=== PATIENT | female | born 1930 | race Caucasian/White ===

== ENCOUNTER → 2016-07-31 | Outpatient (CLI) | payer OTHER, BC ==
[~2016-07-31] MED LIST: ASPI-461 PO; ATEN50TA PO; CALC-20 PO; CHOL1000 PO; DVN80 PO; HYDR-5688 PO; LEVO137T3 PO; LEVO150T PO
[2016-07-31 12:17] LABS: ALB/GLOB RATIO 0.9 (0.9-2); ALT/SGPT 38 U/L (12-78); AST/SGOT 26 U/L (15-37); BLOOD UREA NITROGEN 20 mg/dl (7-18); BUN/CREATININE RATIO 29.9 (10-20); CALCIUM 8.3 mg/dl (8.5-10.1); CARBON DIOXIDE 29 mmol/L (21-32); CHLORIDE 101 mmol/L (98-107); CREATININE 0.68 mg/dl (0.60-1.20); GLUCOSE 83 mg/dl (70-99); POTASSIUM 3.8 mmol/L (3.5-5.1); SODIUM 137 mmol/L (136-145)
[2016-07-31 12:23] LABS: ALKALINE PHOSPHATASE 65 U/L (45-117); PREALBUMIN 15.6 mg/dl (20-40)
== END | disposition home or self-care (01) ==
LOC: C.LABBC 09:51
PROVIDERS: ATTEND Internal Medicine
DX: E40 Kwashiorkor (principal)

== ENCOUNTER → 2016-08-25 | Outpatient (CLI) | payer OTHER, BC | END | disposition home or self-care (01) | LOC: C.MAMM 09:06 | PROVIDERS: ATTEND Internal Medicine | DX: M81.0 Age-related osteoporosis without current pathological fracture (principal); Z78.0 Asymptomatic menopausal state ==

== ENCOUNTER → 2016-11-09 | Outpatient (CLI) | payer OTHER, BC ==
[~2016-11-09] MED LIST changes: -HYDR-5688 PO
[2016-11-09 15:18] LABS: ALT/SGPT 32 U/L (12-78); BLOOD UREA NITROGEN 19 mg/dl (7-18); BUN/CREATININE RATIO 31.7 (10-20); CARBON DIOXIDE 32 mmol/L (21-32); CHLORIDE 98 mmol/L (98-107); GLUCOSE 73 mg/dl (70-99); POTASSIUM 4.3 mmol/L (3.5-5.1); SODIUM 135 mmol/L (136-145)
[2016-11-09 15:23] LABS: ALB/GLOB RATIO 0.9 (0.9-2); ALKALINE PHOSPHATASE 64 U/L (45-117); AST/SGOT 25 U/L (15-37); PREALBUMIN 20.5 mg/dl (20-40)
[2016-11-09 15:31] LABS: CALCIUM 8.6 mg/dl (8.5-10.1)
== END | disposition home or self-care (01) ==
LOC: C.LABBC 09:19
PROVIDERS: ATTEND Internal Medicine
DX: E22.2 Syndrome of inappropriate secretion of antidiuretic hormone (principal)

== ENCOUNTER → 2016-11-11 | Outpatient (CLI) | payer OTHER, BC ==
--- NOTE | 2016-11-11 10:56 | DIAGNOSTIC IMAGING REPORT ---
THORACIC SPINE 3 VIEWS HISTORY: M81.0 [id number] Vitamin D [id number] Mineral defici COMPARISON: None. FINDINGS: There is no fracture. No subluxation. Minimal levoscoliosis which could be positional. Paraspinal soft tissues are unremarkable. 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 IMPRESSION: No fracture or subluxation within the thoracic spine. Mild degenerative disc disease. Electronically signed by: Joe Reyes M.D. 11/11/2016 10:54 AM Dictated Date/Time: 11/11/2016 10:51 AM
== END | disposition home or self-care (01) ==
LOC: C.RAD1850 10:40
PROVIDERS: ATTEND Internal Medicine Rheumatology
DX: E55.9 Vitamin D deficiency, unspecified (principal); E61.8 Deficiency of other specified nutrient elements; M81.0 Age-related osteoporosis without current pathological fracture

== ENCOUNTER → 2016-12-08 | Outpatient (CLI) | payer OTHER, BC ==
[2016-12-08 15:13] LABS: CREATININE 0.63 mg/dl (0.60-1.20)
[2016-12-08 15:21] LABS: CALCIUM URINE 19.7 mg/dl
[2016-12-10 16:12] LABS: ALBUMIN 3.6 G/DL (3.8-4.8); GAMMA GLOBULIN 1.2 G/DL (0.8-1.7); TOTAL PROTEIN 6.5 G/DL (6.2-8.3)
== END | disposition home or self-care (01) ==
LOC: C.LABBC 09:38
PROVIDERS: ATTEND Internal Medicine Rheumatology
DX: E61.8 Deficiency of other specified nutrient elements (principal); M81.0 Age-related osteoporosis without current pathological fracture; E55.9 Vitamin D deficiency, unspecified

== ENCOUNTER → 2016-12-29 | Outpatient (CLI) | payer OTHER, BC ==
--- NOTE | 2016-12-29 16:16 | MAMMOGRAPHY REPORT ---
BILATERAL DIGITAL SCREENING MAMMOGRAM WITH CAD: 12/29/2016 CLINICAL HISTORY: Routine screening. TECHNIQUE: Bilateral CC and MLO views were obtained. Current study was also evaluated with a Compute r Aided Detection (CAD) system. COMPARISON: Comparison is made to exams dated: 12/27/2015 mammogram, 01/04/2015 mammogram, 12/21/2014 ma mmogram, 12/15/2013 mammogram, 12/13/2012 mammogram, and 12/07/2011 mammogram - [facility] nter. BREAST COMPOSITION: There are scattered areas of fibroglandular density in both breasts. FINDINGS: There is minimal vascular calcification in the breasts. No suspicious mass, architectural distortion or cluster of microcalcifications is seen. IMPRESSION: ACR BI-RADS CATEGORY 1: NEGATIVE There is no mammographic evidence of malignancy. A 1 year screening mammogram is recommended. The pa tient will receive written notification of the results. Approximately 10% of breast cancers are not detected with mammography. A negative mammographic report should not delay biopsy if a clinically suggestive mass is present. Bernice Pittman M.D. ay/:12/29/2016 15:58:04 Manager [employer]: Joseph Mac RT(R)(M), [facility] letter sent: Normal 1/2 BI-RADS Code: ACR BI-RADS Category 1: Negative
== END | disposition home or self-care (01) ==
LOC: C.MAMM 09:28
PROVIDERS: ATTEND Internal Medicine
DX: Z12.31 Encounter for screening mammogram for malignant neoplasm of breast (principal)

== ENCOUNTER → 2017-01-20 | Outpatient (CLI) | payer OTHER, BC ==
[2017-01-20 10:56] LABS: CREATININE 0.71 mg/dl (0.60-1.20)
[2017-01-20 11:08] LABS: CALCIUM URINE 10.9 mg/dl
== END | disposition home or self-care (01) ==
LOC: C.LABBC 08:58
PROVIDERS: ATTEND Internal Medicine Rheumatology
DX: M81.0 Age-related osteoporosis without current pathological fracture (principal); E61.8 Deficiency of other specified nutrient elements; E83.50 Unspecified disorder of calcium metabolism

== ENCOUNTER → 2017-03-12 | Outpatient (CLI) | payer OTHER, BC ==
[2017-03-12 13:43] LABS: BLOOD UREA NITROGEN 21 mg/dl (7-18); CREATININE 0.63 mg/dl (0.60-1.20); GLUCOSE 84 mg/dl (70-99)
[2017-03-12 13:44] LABS: ALB/GLOB RATIO 0.8 (0.9-2); ALKALINE PHOSPHATASE 60 U/L (45-117); ALT/SGPT 27 U/L (12-78); AST/SGOT 22 U/L (15-37); CALCIUM 8.5 mg/dl (8.5-10.1); CARBON DIOXIDE 31 mmol/L (21-32); CHLORIDE 100 mmol/L (98-107); POTASSIUM 4.3 mmol/L (3.5-5.1); SODIUM 134 mmol/L (136-145)
[2017-03-12 13:48] LABS: PREALBUMIN 19.7 mg/dl (20-40)
== END | disposition home or self-care (01) ==
LOC: C.LABBC 09:44
PROVIDERS: ATTEND Internal Medicine
DX: M81.0 Age-related osteoporosis without current pathological fracture (principal); E40 Kwashiorkor

== ENCOUNTER → 2017-04-20 | Outpatient (CLI) | payer OTHER, BC ==
[2017-04-20 13:58] LABS: BLOOD UREA NITROGEN 19 mg/dl (7-18); CREATININE 0.65 mg/dl (0.60-1.20)
== END | disposition home or self-care (01) ==
LOC: C.LABBC 10:29
PROVIDERS: ATTEND Physician Assistant
DX: H90.A22 Sensorineural hearing loss, unilateral, left ear, with restricted hearing on the contralateral side (principal)

== ENCOUNTER → 2017-04-28 | Outpatient (CLI) | payer OTHER, BC ==
[~2017-04-28] MED LIST changes: +GADAVIST IV PRN
--- NOTE | 2017-04-28 11:26 | DIAGNOSTIC IMAGING REPORT ---
Brain and temporal bone MRI WITH AND WITHOUT CONTRAST HISTORY: 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 TECHNIQUE: Multiplanar multisequence MRI of the brain and temporal bone were performed both before and after the intravenous administration of contrast. COMPARISON STUDY: None. FINDINGS: There is no mass, hematoma, midline shift, or acute infarct. The paranasal sinuses are clear. The mastoid air cells are clear. The ventricles and sulci demonstrate mild age-related involutional changes. Scattered foci of T2 hyperintensity seen within the periventricular and subcortical white matter are nonspecific but suggestive of mild microvascular ischemic changes. The major vascular flow voids at the skull base are well-maintained. 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 No abnormal enhancement. No masses or abnormal enhancement within the bilateral internal auditory canals. The 7th and 8th cranial nerves are normal in course and caliber. IMPRESSION: 1. No acute intracranial abnormality. Scattered foci of T2 hyperintensity seen within the periventricular and subcortical white matter are nonspecific but favor microvascular ischemic change. 2. No significant abnormality within the bilateral internal auditory canals. Electronically signed by: Joe Reyes M.D. 04/28/2017 11:25 AM Dictated Date/Time: 04/28/2017 11:18 AM
== END | disposition home or self-care (01) ==
LOC: C.MRIBC 09:03
PROVIDERS: ATTEND Physician Assistant
DX: H90.A22 Sensorineural hearing loss, unilateral, left ear, with restricted hearing on the contralateral side (principal)

== ENCOUNTER → 2017-05-10 | Outpatient (CLI) | payer OTHER, BC ==
[~2017-05-10] MED LIST changes: -GADAVIST IV PRN
== END | disposition home or self-care (01) ==
LOC: C.LABBC 10:18
PROVIDERS: ATTEND Internal Medicine
DX: E03.9 Hypothyroidism, unspecified (principal)

== ENCOUNTER → 2017-07-12 | Outpatient (CLI) | payer OTHER, BC | END | disposition home or self-care (01) | LOC: C.LABBC 09:01 | PROVIDERS: ATTEND Internal Medicine Rheumatology | DX: M81.0 Age-related osteoporosis without current pathological fracture (principal); E61.8 Deficiency of other specified nutrient elements ==

== ENCOUNTER → 2017-08-02 | Outpatient (CLI) | payer OTHER, BC ==
[2017-08-02 11:01] LABS: HEMOGLOBIN A1C 5.6 % (4.5-5.6)
[2017-08-02 11:02] LABS: BASO % 0.7 %; BASO ABS # 0.04 K/uL (0-0.2); EOS ABS # 0.06 K/uL (0-0.5); HEMOGLOBIN 13.1 g/dL (12.0-16.0); IG# 0.01 K/uL (0.00-0.02); LYMPH % 22.4 %; LYMPH ABS # 1.35 K/uL (1.2-3.4); MEAN CELL VOLUME 91.1 fL (80-100); MEAN CORPUSCULAR HEMOGLOBIN 29.8 pg (25-34); MEAN CORPUSCULAR HGB CONC 32.8 g/dl (32-36); MEAN PLATELET VOLUME 11.1 fL (7.4-10.4); MONO % 9.4 %; MONO ABS # 0.57 K/uL (0.11-0.59); NEUT % 66.3 %; NEUT ABS # 4.01 K/uL (1.4-6.5); PLATELET COUNT 210 K/uL (130-400); RED CELL DISTRIBUTION WIDTH CV 13.8 % (11.5-14.5); RED CELL DISTRIBUTION WIDTH SD 46.3 fL (36.4-46.3); WHITE BLOOD COUNT 6.04 K/uL (4.8-10.8)
[2017-08-02 11:29] LABS: ALBUMIN 3.1 gm/dl (3.4-5.0); ALT/SGPT 27 U/L (12-78); AST/SGOT 21 U/L (15-37); BLOOD UREA NITROGEN 13 mg/dl (7-18); CALCIUM 8.2 mg/dl (8.5-10.1); CARBON DIOXIDE 31 mmol/L (21-32); CREATININE 0.61 mg/dl (0.60-1.20); GLUCOSE 91 mg/dl (70-99); SODIUM 133 mmol/L (136-145); TOTAL PROTEIN 6.9 gm/dl (6.4-8.2)
[2017-08-02 11:35] LABS: ALKALINE PHOSPHATASE 59 U/L (45-117)
== END | disposition home or self-care (01) ==
LOC: C.LABBC 09:01
PROVIDERS: ATTEND Internal Medicine
DX: E55.9 Vitamin D deficiency, unspecified (principal)

== ENCOUNTER → 2017-12-15 | Outpatient (CLI) | payer OTHER, BC ==
[~2017-12-15] MED LIST changes: +ALEN70TA4 PO
[2017-12-15 14:12] LABS: ALBUMIN 2.9 gm/dl (3.4-5.0); ALKALINE PHOSPHATASE 152 U/L (45-117); ALT/SGPT 70 U/L (12-78); AST/SGOT 52 U/L (15-37); BLOOD UREA NITROGEN 16 mg/dl (7-18); CALCIUM 8.4 mg/dl (8.5-10.1); CARBON DIOXIDE 28 mmol/L (21-32); CHOLESTEROL 95 mg/dl (0-200); CREATININE 0.72 mg/dl (0.60-1.20); GLUCOSE 93 mg/dl (70-99); LDL CHOLESTEROL CALCULATED 41 mg/dl; POTASSIUM 3.7 mmol/L (3.5-5.1); SODIUM 130 mmol/L (136-145); TOTAL PROTEIN 6.9 gm/dl (6.4-8.2)
== END | disposition home or self-care (01) ==
LOC: C.LABBC 09:10
PROVIDERS: ATTEND Physician Assistant Medical
DX: I10 Essential (primary) hypertension (principal); E03.9 Hypothyroidism, unspecified; E78.5 Hyperlipidemia, unspecified; E40 Kwashiorkor; R73.01 Impaired fasting glucose

== ENCOUNTER → 2018-03-11 | Outpatient (CLI) | payer OTHER, BC ==
[~2018-03-11] MED LIST changes: -ATEN50TA PO; -LEVO137T3 PO; +LPT20 PO; +NUTR-7 PO; +SDMC1 PO
[2018-03-11 13:16] LABS: BASO % 0.4 %; BASO ABS # 0.03 K/uL (0-0.2); EOS % 1.3 %; EOS ABS # 0.09 K/uL (0-0.5); HEMATOCRIT 39.2 % (37-47); IG# 0.02 K/uL (0.00-0.02); LYMPH % 18.7 %; LYMPH ABS # 1.26 K/uL (1.2-3.4); MEAN CELL VOLUME 90.7 fL (80-100); MEAN CORPUSCULAR HEMOGLOBIN 30.1 pg (25-34); MEAN CORPUSCULAR HGB CONC 33.2 g/dl (32-36); MEAN PLATELET VOLUME 10.8 fL (7.4-10.4); MONO % 10.2 %; MONO ABS # 0.69 K/uL (0.11-0.59); NEUT % 69.1 %; NEUT ABS # 4.66 K/uL (1.4-6.5); PLATELET COUNT 205 K/uL (130-400); RED CELL DISTRIBUTION WIDTH CV 14.7 % (11.5-14.5); RED CELL DISTRIBUTION WIDTH SD 49.3 fL (36.4-46.3); WHITE BLOOD COUNT 6.75 K/uL (4.8-10.8)
[2018-03-11 13:36] LABS: ALBUMIN 3.4 gm/dl (3.4-5.0); ALKALINE PHOSPHATASE 61 U/L (45-117); ALT/SGPT 29 U/L (12-78); AST/SGOT 28 U/L (15-37); BLOOD UREA NITROGEN 20 mg/dl (7-18); CALCIUM 8.6 mg/dl (8.5-10.1); CARBON DIOXIDE 29 mmol/L (21-32); CREATININE 0.67 mg/dl (0.60-1.20); GLUCOSE 80 mg/dl (70-99); POTASSIUM 4.1 mmol/L (3.5-5.1); SODIUM 130 mmol/L (136-145); TOTAL PROTEIN 7.4 gm/dl (6.4-8.2)
== END | disposition home or self-care (01) ==
LOC: C.LABBC 09:43
PROVIDERS: ATTEND Internal Medicine
DX: I10 Essential (primary) hypertension (principal); E83.50 Unspecified disorder of calcium metabolism

== ENCOUNTER 2021-01-16 11:52 | Inpatient (IN) ==
--- NOTE | 2021-01-16 12:20 | Emergency Department Note ---
History of Present Illness General Chief complaint: Hip Pain Stated complaint: LEFT HIP FRACTURE Time Seen by Provider: 01/16/21 12:01 Source: patient History of Present Illness Provider complaint: Left hip pain Onset (ago): day(s) Location: hip and left Radiation: non-radiation Severity: severe Pain Consistency: + intermittent Maximum Pain Intensity: 10 Quality: + other (Worse than childbirth) Exacerbated By: + movement Associated symptoms: no chest pain, no cough, no fever/chills, no headaches, no nausea/vomiting and no shortness of breath This is an 89-year-old female who presents with left hip pain. She states that she was in her garden and she fell sometime either 2 or 3 days ago. She states the ground is uneven which caused her to fall. She states she fell forward and did not hit her head or injure her neck. She complains of pain to the left hip. She rates it a 10 out of 10 in severity. She states it is better if she lays still and worse when she moves. She describes it as worse than childbirth. She denies any headache, fever, cough or cold symptoms, chest pain, shortness of breath, abdominal pain or vomiting. She states that she has had her Covid vaccinations. She last ate at 8:45 AM this morning. She went to her doctor's office today who ordered an x-ray which showed a fracture and sent her here for admission. Home Medications Medication Instructions Recorded Confirmed Type aspirin 81 mg tablet,delayed 81 mg PO QAM 02/28/19 01/16/21 History release Ca 600 mg-D3 20 mcg-mag oxide 50 1 tab PO QAM tab 03/07/19 01/16/21 History at-Wq-lnzaxk-manganese-boron tablet multivitamin 1 tab PO QAM 03/07/19 01/16/21 History cholecalciferol (vitamin D3) 25 25 mcg PO BID tab 08/25/19 01/16/21 History mcg (1,000 unit) tablet atenolol 50 mg tablet 50 mg PO QAM #90 tab 11/01/20 01/16/21 Rx telmisartan 80 mg tablet 80 mg PO QAM #90 tab 01/01/21 01/16/21 Rx levothyroxine 125 mcg PO QAM 01/16/21 01/16/21 History Allergies Allergy/AdvReac Type Severity Reaction Status Date / Time No Known Allergies Allergy Verified 01/16/21 14:44 Past Med/Surg History Medical History Asymmetrical left sensorineural hearing loss Extrasystole Hypertension Hypothyroid Mineral deficiency Osteoporosis 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 hearing of right ear SNHL (sensorineural hearing loss) Uterus prolapse Surgical History Hernia History of cataract surgery History of dilation and curettage History of partial hysterectomy Family History Father Colon cancer COPD (chronic obstructive pulmonary disease) Unknown Ovarian cancer Mother Cervical cancer Brother Carcinoma of pancreas Other Arthritis Diabetes Denies family history of Myocardial infarction Breast cancer Lung cancer Colorectal cancer Hypertension Stroke Social History Smoking Status: Never smoker Second Hand Exposure: No; Hx Alcohol Use: No Hx Substance Use: No Preferred Language: Salvadorean Communication Ability: Effective Visual Impairment: Limited Hearing Ability: Use of Hearing Aid Rn Licensed Practical Required: No marital status: Current Living Situation: Spouse current occupational status: retired Feels Safe at Home: Yes Childhood Exposure to Second-Hand Smoke: No caffeine: Yes Dental Care, Regularly: Yes Physical Activity Frequency: 1-2 Times per Week Seatbelt Use: always Sunscreen Use: Yes Review of Systems See HPI for pertinent positives & negatives. and A total of 10 systems reviewed and were otherwise negative Physical Exam Vital Signs Vital Signs - 24 hr 01/16/21 11:56 01/16/21 13:32 01/16/21 14:00 Temperature 36.4 C L Temperature Source Oral Pulse Rate 65 67 61 Pulse Rate [Apical] Pulse Rate [Left Finger] Pulse Rhythm [Left Finger] Pulse Strength [Left Finger] Respiratory Rate 18 24 19 Respiratory Effort / Characteristics Respiratory Depth Respiratory Pattern Blood Pressure 165/92 H 165/90 H 158/78 H Blood Pressure [Right Arm] Blood Pressure Mean 116 115 104 Blood Pressure Mean [Right Arm] Blood Pressure Position [Right Arm] Pulse Oximetry 98 96 97 Oxygen Delivery Method Oxygen Flow Rate Sepsis Recent Fever Within 48 Hours No Sepsis New/Unexplained Change in Mental Status N/A Sepsis Action Taken by Nursing No Action Required 01/16/21 14:30 01/16/21 14:37 01/16/21 15:02 Temperature 36.6 C Temperature Source Oral Pulse Rate 82 Pulse Rate [Apical] Pulse Rate [Left Finger] 76 Pulse Rhythm [Left Finger] Regular Pulse Strength [Left Finger] Normal Respiratory Rate 20 20 Respiratory Effort / Characteristics Non-Labored Spontaneous Normal for Patient Respiratory Depth Normal Respiratory Pattern Regular Blood Pressure 154/74 H Blood Pressure [Right Arm] 163/75 H Blood Pressure Mean 100 Blood Pressure Mean [Right Arm] 104 Blood Pressure Position [Right Arm] Semi-fowlers Pulse Oximetry 97 96 Oxygen Delivery Method Room Air Room Air Oxygen Flow Rate Sepsis Recent Fever Within 48 Hours Sepsis New/Unexplained Change in Mental Status Sepsis Action Taken by Nursing 01/16/21 18:28 01/16/21 18:35 01/16/21 18:45 Temperature 36.0 C L Temperature Source Temporal Artery Scan Pulse Rate Pulse Rate [Apical] 65 65 67 Pulse Rate [Left Finger] Pulse Rhythm [Left Finger] Pulse Strength [Left Finger] Respiratory Rate 16 16 16 Respiratory Effort / Characteristics Non-Labored Spontaneous Non-Labored Spontaneous Non-Labored Spontaneous Respiratory Depth Normal Normal Normal Respiratory Pattern Regular Regular Regular Blood Pressure Blood Pressure [Right Arm] 123/92 129/83 144/90 H Blood Pressure Mean Blood Pressure Mean [Right Arm] 102 98 108 Blood Pressure Position [Right Arm] Pulse Oximetry 95 95 95 Oxygen Delivery Method Oxymask Oxymask Nasal Cannula Oxygen Flow Rate 2 Sepsis Recent Fever Within 48 Hours Sepsis New/Unexplained Change in Mental Status Sepsis Action Taken by Nursing Constitutional: Vital signs reviewed. Eyes: Pupils are equal round reactive to light. Conjunctiva are noninjected. ENT: Pharynx is clear without erythema or exudate. Mucous membranes are moist. Neck supple without meningeal signs. Respiratory: Clear to auscultation bilaterally. Breath sounds are equal bilaterally. Cardiovascular: Regular rate and rhythm. No rubs or gallops. GI: Soft, nondistended and nontender. Bowel sounds are present. Musculoskeletal: Tenderness over the left hip without obvious shortening. Normal distal pulses. Integumentary: No cyanosis. or jaundice. Neurological: The patient is awake and alert. No focal deficits. Psychiatric: Normal affect. Not anxious appearing. Course Administered Medications Sodium Chloride (Nss 1000ml) 1,000 mls @ 125 mls/hr IV .Q8H DEVNOTE Stop: 02/15/21 13:29 Last Admin: 01/16/21 14:07 Dose: 125 mls/hr Documented by: [id number] Discontinued Medications Bupivacaine HCl/Epinephrine Bitart (Bupivacaine/Epinephrine 0.5% Mpf 1:200,000 30 Ml Vial) Confirm Administered Dose 30 ml .ROUTE .STK-MED ONE Stop: 01/16/21 16:57 Last Admin: 01/16/21 17:57 Dose: 30 ml Documented by: [id number] Acetaminophen (Ofirmev) 1,000 mg in 100 mls @ 400 mls/hr IV NOW STA Stop: 01/16/21 13:45 Last Infusion: 01/16/21 14:22 Dose: 0 mls/hr Documented by: [id number] Admin: 01/16/21 14:07 Dose: 400 mls/hr Documented by: [id number] Cefazolin Sodium (Ancef 2000mg) 2,000 mg in 15 mls @ 3.75 mls/min IV PREOP ONE Stop: 01/16/21 15:42 Last Admin: 01/16/21 16:40 Dose: 3.75 mls/min Documented by: [id number] Medical Decision Making Differential Diagnosis Hip fracture, osteoporosis, strain, hip dislocation, pelvic fracture Medical Records Attestation: I reviewed the patient's medical records. I did perform a limited focused review of portions of the patient's old chart on the electronic medical record. The patient had an x-ray this morning which showed: Impacted subcapital fracture of the left femur. Home Medications Current Medication List: was personally reviewed by me Laboratory Data Attestation: I reviewed the patient's lab results. Result diagrams: 01/16/21 12:43 01/16/21 12:43 Lab Results 01/16/21 01/16/21 01/16/21 Range/Units 12:43 12:43 12:43 WBC 8.49 (4.8-10.8) K/uL RBC 3.96 L (4.2-5.4) M/uL Hgb 12.3 (12.0-16.0) g/dL Hct 36.1 L (37-47) % MCV 91.2 (80-100) fL MCH 31.1 (25-34) pg MCHC 34.1 (32-36) g/dL RDW Std Deviation 43.4 (36.4-46.3) fL RDW Coeff of James 13.1 (11.5-14.5) % Plt Count 195 (130-400) K/uL MPV 9.7 (7.4-10.4) fL Immature Gran % (Auto) 0.5 % Neut % (Auto) 82.1 % Lymph % (Auto) 6.2 % [place] % (Auto) 10.2 % Eos % (Auto) 0.8 % Baso % (Auto) 0.2 % Neut # (Auto) 6.96 H (1.4-6.5) K/uL Lymph # (Auto) 0.53 L (1.2-3.4) K/uL [place] # (Auto) 0.87 H (0.11-0.59) K/uL Eos # (Auto) 0.07 (0-0.5) K/uL Baso # (Auto) 0.02 (0-0.2) K/uL Immature Gran # (Auto) 0.04 H (0.00-0.02) K/uL PT 10.3 (9.0-12.0) Seconds INR 1.0 (0.9-1.1) APTT 28.4 (21.0-31.0) Seconds PTT Ratio 1.1 Sodium (136-145) mmol/L Potassium (3.5-5.1) mmol/L Chloride (98-107) mmol/L Carbon Dioxide (21-32) mmol/L Anion Gap (3-11) BUN (7-18) mg/dl Creatinine (0.6-1.2) mg/dl Est Cr Clr Drug Dosing ml/min Est GFR ( Amer) ml/min Est GFR (Non-Af Amer) ml/min BUN/Creatinine Ratio (10-20) Glucose (70-99) mg/dl Calcium (8.5-10.1) mg/dl Total Bilirubin (0.2-1) mg/dl AST (15-37) U/L ALT (12-78) U/L Alkaline Phosphatase (45-117) U/L Total Protein (6.4-8.2) gm/dl Albumin (3.4-5.0) gm/dl Globulin (2.5-4.0) gm/dl Albumin/Globulin Ratio (0.9-2) COVID-19 Eval Order SARS-CoV-2 (PCR) (Negative) Blood Type O Negative Antibody Screen NEGATIVE 01/16/21 01/16/21 01/16/21 Range/Units 12:43 13:03 13:03 WBC (4.8-10.8) K/uL RBC (4.2-5.4) M/uL Hgb (12.0-16.0) g/dL Hct (37-47) % MCV (80-100) fL MCH (25-34) pg MCHC (32-36) g/dL RDW Std Deviation (36.4-46.3) fL RDW Coeff of James (11.5-14.5) % Plt Count (130-400) K/uL MPV (7.4-10.4) fL Immature Gran % (Auto) % Neut % (Auto) % Lymph % (Auto) % [place] % (Auto) % Eos % (Auto) % Baso % (Auto) % Neut # (Auto) (1.4-6.5) K/uL Lymph # (Auto) (1.2-3.4) K/uL [place] # (Auto) (0.11-0.59) K/uL Eos # (Auto) (0-0.5) K/uL Baso # (Auto) (0-0.2) K/uL Immature Gran # (Auto) (0.00-0.02) K/uL PT (9.0-12.0) Seconds INR (0.9-1.1) APTT (21.0-31.0) Seconds PTT Ratio Sodium 131 L (136-145) mmol/L Potassium 3.9 (3.5-5.1) mmol/L Chloride 97 L (98-107) mmol/L Carbon Dioxide 30 (21-32) mmol/L Anion Gap 4.0 (3-11) BUN 14 (7-18) mg/dl Creatinine 0.48 L (0.6-1.2) mg/dl Est Cr Clr Drug Dosing 64.0 ml/min Est GFR ( Amer) 100.8 ml/min Est GFR (Non-Af Amer) 87.0 ml/min BUN/Creatinine Ratio 28.3 H (10-20) Glucose 84 (70-99) mg/dl Calcium 8.5 (8.5-10.1) mg/dl Total Bilirubin 0.7 (0.2-1) mg/dl AST 24 (15-37) U/L ALT 22 (12-78) U/L Alkaline Phosphatase 56 (45-117) U/L Total Protein 6.9 (6.4-8.2) gm/dl Albumin 3.0 L (3.4-5.0) gm/dl Globulin 3.9 (2.5-4.0) gm/dl Albumin/Globulin Ratio 0.8 L (0.9-2) COVID-19 Eval Order Covid19 at [facility] SARS-CoV-2 (PCR) NEGATIVE (Negative) Blood Type Antibody Screen Imaging Data Radiologist's Impression: Chest X-Ray 01/16/21 12:12 XR chest 1V portable CLINICAL HISTORY: hip fx COMPARISON STUDY: October 17, 2019 FINDINGS: No pneumothorax. No pleural effusion. Hyperinflation of bilateral lungs are again seen. Diffuse coarse prominence of pulmonary interstitium is seen bilaterally without definite large infiltrates or consolidative lesions. Interval worsening of cardiomegaly, now appear moderate to severe. Aorta is tortuous and calcified. Pulmonary vasculature is indistinct. Osseous structures: Osteopenia. IMPRESSION: 1. Moderate to severe cardiomegaly, worsening since prior study. Aorta is tortuous and calcified. Possible pulmonary edema. 2. COPD pattern. ACT 112: Positive. There are findings on this exam that require communication between the performing entity and the patient following Patient Test Result Information Act ([place] Act 112) guidelines. The above report was generated using voice recognition software. It may contain grammatical, syntax or spelling errors. Electronically signed by: Carmen Rosas DO 01/16/2021 12:48 PM Knee X-Ray 01/16/21 13:16 XR knee LT 1 or 2V routine CLINICAL HISTORY: Left knee pain status post trauma COMPARISON: None. DISCUSSION: The bones are osteopenic. No acute fractures are visualized. There are osteoarthritic changes most pronounced within the lateral joint compartment. The study is somewhat limited from a positioning standpoint. IMPRESSION: 1. Degenerative changes 2. No acute fractures ACT 112: Negative or not required by law. Electronically signed by: Cristiano Zepeda M.D. 01/16/2021 1:31 PM Hip X-Ray 01/16/21 15:00 FL hip LT 1V CLINICAL HISTORY: LT CEMENTED ANTERIOR HIP COMPARISON STUDY: X-ray study dated 01/16/2021 FLUOROSCOPY TIME: 10 seconds. NUMBER OF FLUOROSCOPIC IMAGES: 3 FINDINGS: 3 intraoperative fluoroscopic spot images demonstrate placement of a bipolar left hip arthroplasty. IMPRESSION: Intraoperative fluoroscopic spot images demonstrating placement of a bipolar left hip arthroplasty. No dislocation is visualized. ACT 112: Negative or not required by law. Electronically signed by: Cristiano Zepeda M.D. 01/16/2021 6:11 PM Hip X-Ray 01/16/21 18:12 XR hip LT min 2V CLINICAL HISTORY: Hip fracture. Postoperative study COMPARISON: 01/16/2021 DISCUSSION: There are postsurgical changes of a bipolar left hip arthroplasty. There is no dislocation. There is gas within soft tissues consistent with recent surgery. There are overlying skin enoch. IMPRESSION: Bipolar total left hip arthroplasty. No evidence of dislocation ACT 112: Negative or not required by law. Electronically signed by: Cristiano Zepeda M.D. 01/16/2021 6:34 PM ECG Data Attestation: I personally reviewed and interpreted this ECG as follows: Indication: + other (Hip fracture) Rate (beats per minute): 66 ECG Intervals/blocks: + Prolonged QT ECG [place]: + Normal ECG ST segments: + Nonspecific ST abnormalities ECG Findings: + LVH Comparison ECG Date: from (October 17, 2019) Change: no significant change MDM Narrative I did evaluate the patient as noted above. The patient is presenting to the hospital from her doctor's office with a hip fracture. She fell 2 or 3 days ago. She states it was a mechanical fall. She denies having any other symptoms and declines any pain medication at this time. I did speak to Dr. Cunningham who stated that he would be able to take her to the OR today at 3 PM. She last ate and drank at 840 this a.m. when she had breakfast. She was kept n.p.o. here. IV access was established. I did order and personally review the patient's 12- lead EKG as described above. She has nonspecific ST changes, LVH, and prolonged QT. There is no significant change from her prior EKG from September. I did order and personally reviewed the images of the patient's chest x-ray as described above. She has cardiomegaly. I did order and review the patient's blood work as noted in the electronic medical record. Her white count is 8.4. She is not anemic or thrombocytopenic. Electrolytes demonstrate a sodium of 131 and chloride of 97. She does have a history of hyponatremia. I did discuss the case with the hospitalist and ed case manager. Impression & Plan Closed left hip fracture, Chronic hyponatremia Discharge Plan Visit Data Chief Complaint: Hip Pain Stated Complaint: LEFT HIP FRACTURE ED Provider: Orlando Julio Discharge Problem: Closed left hip fracture, Chronic hyponatremia Patient Disposition: Being Evaluated by Surgeon Discharge Instructions Interventions: ED Discharge Assessment Last Done: 01/16/21 14:37 Forms Stand Alone Forms: My [facility] [employer] Prescriptions Prescriptions: No Action telmisartan 80 mg tablet 80 mg PO QAM Qty: 90 RF: 3 cholecalciferol (vitamin D3) 25 mcg (1,000 unit) tablet 25 mcg PO BID RF: 0 aspirin 81 mg tablet,delayed release (DR/EC) 81 mg PO QAM RF: 0 Ca-D3-mag mp-ebdt-gbs-marine-bor [Calcium 600-D3 Plus (mag-zinc)] 600 mg calcium- 800 unit-50 mg tablet 1 tab PO QAM RF: 0 multivitamin tablet 1 tab PO QAM RF: 0 atenolol 50 mg tablet 50 mg PO QAM Qty: 90 RF: 3 levothyroxine 125 mcg capsule 125 mcg PO QAM RF: 0 Referrals Referrals: Bao Eisenberg MD [Primary Care Provider] - Discharge Problem: Closed left hip fracture Qualifiers: Encounter type: initial encounter Qualified Code(s): S72.002A - Fracture of unspecified part of neck of left femur, initial encounter for closed fracture
--- NOTE | 2021-01-16 12:44 | History & Physical Report ---
Date of Service January 16, 2021 Assessment & Plan (1) Closed left hip fracture: Admit to med/surg post operatively Brito cath placed Pre-op labs unremarkable NPO, start NSS @ 125 ml/hr perioperatively CXR with chronic cardiomegaly (presumed LVH based on EKG), monitor for worsening pulmonary edema with IV fluids however currently no hypoxia or shortness of breath and chest CTAB. EKG sinus with PACs Revised cardiac risk risk score 0. 3.9% 30-day risk of , NC or cardiac arrest. She is medically optimized for surgery at this time. Question of CVA in problem list but denied by patient and Brain MRI in 2018 without prior CVA. (2) HTN (hypertension): Patient already taken her antihypertensives this morning. Continue atenolol 50 mg p.o. every morning and telmisartan 80 mg p.o. every morning with hold parameters. (3) Hypothyroidism: TSH 1.05 in November 2020 Continue levothyroxine 125 mcg p.o. daily (4) SIADH (syndrome of inappropriate ADH production): Chronic hyponatremia at baseline (5) Osteoporosis: Severe per prior bone density in 2019. Already taking alendronate, hold perioperatively. (6) Recurrent falls: No specific etiology other than tripping. PT/OT evals (7) Ambulatory dysfunction: PT/OT following operation (8) Cardiomegaly: Consider follow up TTE as outpatient. Does not need to be worked up prior to surgery. (9) DVT prophylaxis: Per orthopedics Admission and Anticipated Discharge Date Admission Date: January 16, 2021 History of Present Illness Chief Complaint: Left hip pain Primary Care Provider: Bao Eisenberg MD Geneva Linda is an 89 year old female admission for left hip pain after a fall 3 days previously. Pain severity 6/10 on any movement. Multiple falls recently. 3 weeks ago fell in yard with abrasion to left lower extremity. 2 weeks ago fell at home with ecchymosis to the lateral distal knee and thigh. Fell out in the yard developing some abrasion of her left lower extremity. She was doing ok after these falls and able to go to [employer] at the weekend. However on Wednesday she was having problems with ambulation and more reliant on her walker and trouble moving her leg. She followed up with her PCP today and subsequent hip XR confirmed hip fracture and she was referred to the ER for further treatment. She reports mild right groin and knee pain at this time. She denies any chest pain, dizziness or shortness of breath prior to her falls. She feels like she just trips on uneven ground and denies any inherent balance problems. No shortness of breath or chest pain on exertion. No prior NC of CVA. The patient has known osteoporosis and started alendronate 11/2016. Vitamin D3 01/2020 WNL. Allergies Allergy/AdvReac Type Severity Reaction Status Date / Time No Known Allergies Allergy Verified 01/16/21 14:44 Home Medications Medication Instructions Recorded Confirmed Type aspirin 81 mg tablet,delayed 81 mg PO QAM 02/28/19 01/16/21 History release Ca 600 mg-D3 20 mcg-mag oxide 50 1 tab PO QAM tab 03/07/19 01/16/21 History ur-Oi-cwddll-manganese-boron tablet multivitamin 1 tab PO QAM 03/07/19 01/16/21 History cholecalciferol (vitamin D3) 25 25 mcg PO BID tab 08/25/19 01/16/21 History mcg (1,000 unit) tablet atenolol 50 mg tablet 50 mg PO QAM #90 tab 11/01/20 01/16/21 Rx telmisartan 80 mg tablet 80 mg PO QAM #90 tab 01/01/21 01/16/21 Rx levothyroxine 125 mcg PO QAM 01/16/21 01/16/21 History Past Med/Surg History Medical History Asymmetrical left sensorineural hearing loss Extrasystole Hypertension Hypothyroid Mineral deficiency Osteoporosis 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 hearing of right ear SNHL (sensorineural hearing loss) Uterus prolapse Surgical History Hernia History of cataract surgery History of dilation and curettage History of partial hysterectomy Family History Father Colon cancer COPD (chronic obstructive pulmonary disease) Unknown Ovarian cancer Mother Cervical cancer Brother Carcinoma of pancreas Other Arthritis Diabetes Denies family history of Myocardial infarction Breast cancer Lung cancer Colorectal cancer Hypertension Stroke Social History Smoking Status: Never smoker Second Hand Exposure: No; Do You Dip or Chew Tobacco: No; Tobacco Cessation Education Requested by Patient: No Hx Alcohol Use: No Hx Substance Use: No Preferred Language: Chadian Communication Ability: Effective Visual Impairment: Limited Hearing Ability: Use of Hearing Aid Hip Hop Performers Required: No Beliefs That Will Affect Care: Yazdanism Yazdanism Beliefs: Moravian. marital status: Current Living Situation: Alone current occupational status: retired Other Information That Helps Us Care for You: No Feels Safe at Home: Yes Safety Concerns: Feels Safe At This Time Childhood Exposure to Second-Hand Smoke: No caffeine: Yes Dental Care, Regularly: Yes Physical Activity Frequency: 1-2 Times per Week Seatbelt Use: always Sunscreen Use: Yes Assistive Devices: Glasses, Hearing Aid - Right and Walker Review of Systems Review of Systems: All systems reviewed & are unremarkable except as noted in HPI & below Physical Exam Constitutional: WD/WN, vitals as above Eyes: + anicteric sclerae; normal pupil size Respiratory: normal respiratory effort, lungs clear to auscultation Cardiovascular: Rate/Rhythm: regular rate and regular rhythm Heart Sounds: no murmur Extremities: normal capillary refill; no calf tenderness and no pe radha edema Gastrointestinal (Abdomen): normal bowel sounds, soft, nontender, no hepatosplenomegaly Musculoskeletal: Pain with rotation of left hip. NV intact distally. Closed skin. Skin: no rashes, warm and dry Neurologic: moves all extremities and awake; not confused Results & Data Results & Data ([facility]) Vital Signs (Past 12 Hours) Vital Signs Temp Pulse Resp BP Pulse Ox 01/16/21 11:56 36.4 C L 65 18 165/92 H 98 Diagnostic Findings XR chest 1V portable IMPRESSION: 1. Moderate to severe cardiomegaly, worsening since prior study. Aorta is tortuous and calcified. Possible pulmonary edema. 2. COPD pattern. XR knee LT 1 or 2V routine IMPRESSION: 1. Degenerative changes 2. No acute fractures SINGLE VIEW PELVIS; 2 VIEWS LEFT HIP IMPRESSION: Impacted subcapital fracture of the left femur. Medications Administered ER medications given: None ECG Rate (beats per minute): 66 Rhythm: normal sinus Findings: no acute ischemic change Comparison ECG Date: from (October 162019) Change: no significant change Code Status & VTE Plan Code Status Full VTE Prophylaxis Plan VTE Prophylaxis will be ordered: Yes PG Care Time/CCT Total # of Minutes Spent Total Time Spent with Patient: Total time spent is greater than 50% in coordination of care (as documented) at patient's floor/unit and/or counseling patient: Coding Level of Care Code 45916 Initial Inpt Care Lvl 2 Diagnoses Closed left hip fracture S72.002A Encounter type: initial encounter HTN (hypertension) I10 Hypertension type: essential hypertension Hypothyroidism E03.9 Hypothyroidism type: acquired SIADH (syndrome of inappropriate ADH production) E22.2 Osteoporosis M80.00XA Encounter type: initial encounter Osteoporosis type: age-related Presence of current pathological fracture: with current pathological fracture Recurrent falls R29.6 Ambulatory dysfunction R26.2 Cardiomegaly I51.7 DVT prophylaxis Z29.9 (1) Osteoporosis Encounter type: initial encounter Osteoporosis type: age-related Presence of current pathological fracture: with current pathological fracture Qualified Code(s): M80.00XA - Age-related osteoporosis with current pathological fracture, unspecified site, initial encounter for fracture (2) Hypothyroidism Hypothyroidism type: acquired Qualified Code(s): E03.9 - Hypothyroidism, unspecified (3) HTN (hypertension) Hypertension type: essential hypertension Qualified Code(s): I10 - Essential (primary) hypertension (4) Closed left hip fracture Encounter type: initial encounter Qualified Code(s): S72.002A - Fracture of unspecified part of neck of left femur, initial encounter for closed fracture
--- NOTE | 2021-01-16 12:50 | XRay Report ---
XR chest 1V portable CLINICAL HISTORY: hip fx COMPARISON STUDY: October 17, 2019 FINDINGS: No pneumothorax. No pleural effusion. Hyperinflation of bilateral lungs are again seen. Diffuse coarse prominence of pulmonary interstitium is seen bilaterally without definite large infiltrates or consolidative lesions. Interval worsening of cardiomegaly, now appear moderate to severe. Aorta is tortuous and calcified. Pulmonary vasculature is indistinct. Osseous structures: Osteopenia. IMPRESSION: 1. Moderate to severe cardiomegaly, worsening since prior study. Aorta is tortuous and calcified. Po ssible pulmonary edema. 2. COPD pattern. ACT 112: Positive. There are findings on this exam that require communication between the performing entity and the patient following Patient Test Result Information Act ([place] Act 112) guidelines. The above report was generated using voice recognition software. It may contain grammatical, syntax o r spelling errors. Electronically signed by: Carmen Rosas DO 01/16/2021 12:48 PM
[2021-01-16 12:55] LABS: Basophils # (auto) 0.02 K/uL (0-0.2); Basophils % (auto) 0.2 %; Eosinophils # (auto) 0.07 K/uL (0-0.5); Eosinophils % (auto) 0.8 %; Hematocrit (blood only) 36.1 % (37-47); Hemoglobin 12.3 g/dL (12.0-16.0); Immature Granulocytes # (auto) 0.04 K/uL (0.00-0.02); Immature Granulocytes % (auto) 0.5 %; Lymphocytes # (auto) 0.53 K/uL (1.2-3.4); Lymphocytes % (auto) 6.2 %; Mean Corpuscular Hemoglobin 31.1 pg (25-34); Mean Corpuscular Hgb Conc 34.1 g/dL (32-36); Mean Corpuscular Volume 91.2 fL (80-100); Mean Platelet Volume 9.7 fL (7.4-10.4); Monocytes # (auto) 0.87 K/uL (0.11-0.59); Monocytes % (auto) 10.2 %; Neutrophils # (auto) 6.96 K/uL (1.4-6.5); Neutrophils % (auto) 82.1 %; Platelet Count 195 K/uL (130-400); RDW Coefficient of Variation 13.1 % (11.5-14.5); RDW Standard Deviation 43.4 fL (36.4-46.3); Red Blood Count 3.96 M/uL (4.2-5.4); White Blood Count 8.49 K/uL (4.8-10.8)
[2021-01-16 13:06] LABS: Partial Thromboplastin Ratio 1.1; Partial Thromboplastin Time 28.4 Seconds (21.0-31.0); Prothrombin Time 10.3 Seconds (9.0-12.0)
[2021-01-16 13:14] LABS: BUN Creatinine Ratio 28.3 (10-20); Calcium 8.5 mg/dl (8.5-10.1); Est GFR (African American) 100.8 ml/min; Potassium 3.9 mmol/L (3.5-5.1)
[2021-01-16 13:21] LABS: Albumin Globulin Ratio 0.8 (0.9-2); Bilirubin,Total 0.7 mg/dl (0.2-1); Globulin 3.9 gm/dl (2.5-4.0); Total Protein 6.9 gm/dl (6.4-8.2)
[2021-01-16] MEDS ORDERED: ACETAMINOPHEN 1,000 MG/100 ML VIAL IV STA (13:31)
--- NOTE | 2021-01-16 13:32 | XRay Report ---
XR knee LT 1 or 2V routine CLINICAL HISTORY: Left knee pain status post trauma COMPARISON: None. DISCUSSION: The bones are osteopenic. No acute fractures are visualized. There are osteoarthritic vernell nges most pronounced within the lateral joint compartment. The study is somewhat limited from a posit ioning standpoint. IMPRESSION: 1. Degenerative changes 2. No acute fractures ACT 112: Negative or not required by law. Electronically signed by: Cristiano Zepeda M.D. 01/16/2021 1:31 PM
[2021-01-16] MEDS: SODIUM CHLORIDE 0.9% 1000ML 1,000 ML IV SCH ×2 (14:07→22:26)
[2021-01-16] MEDS ORDERED: BUPIVACAINE 0.5 % 5 MG/1 ML PF 10ML VIAL ONE (15:10)
[2021-01-16] MEDS ORDERED: ePHEDrine sulfate 50 MG/ML AMP IV PRN (15:19)
[2021-01-16] MEDS ORDERED: fentaNYL citrate 100 MCG/2 ML VIAL IV PRN (15:19)
[2021-01-16] MEDS ORDERED: HYDROmorphone INJ 2 MG/ML SYR/VIAL IV PRN (15:19)
[2021-01-16] MEDS ORDERED: ATROPINE SULFATE 0.1 MG/ML 10ML SYR IV PRN (15:19)
[2021-01-16] MEDS ORDERED: ONDANSETRON INJ 2 MG/ML 2 ML VIAL IV PRN (15:19)
--- NOTE | 2021-01-16 15:19 | Anesthesiology Consultation ---
Date of Service January 16, 2021 Assessment & Plan ASA ASA3 Proposed Anesthesia Anesthesia Type: MAC Spinal Risk / Benefits Reviewed With: PT / POA / Parent / Guardian, Accepts Plan and Informed Consent Obtained History Surgery Operation Date: 01/16/21 14:15 Proposed Procedures p Left Cemented Anterior Bipolar Hip - Ramon Cunningham DO Height/Weight Height: 5 ft 6 in Weight: 51 kg Allergies Allergy/AdvReac Type Severity Reaction Status Date / Time No Known Allergies Allergy Verified 01/16/21 14:44 Medications Home Medications Medication Instructions Recorded Confirmed Last Taken aspirin 81 mg tablet,delayed 81 mg PO QAM 02/28/19 01/16/21 01/16/21 release Ca 600 mg-D3 20 mcg-mag oxide 50 1 tab PO QAM tab 03/07/19 01/16/21 01/16/21 lo-Yx-ypelui-manganese-boron tablet multivitamin 1 tab PO QAM 03/07/19 01/16/21 01/16/21 cholecalciferol (vitamin D3) 25 25 mcg PO BID tab 08/25/19 01/16/21 01/16/21 mcg (1,000 unit) tablet atenolol 50 mg tablet 50 mg PO QAM #90 tab 11/01/20 01/16/21 01/16/21 telmisartan 80 mg tablet 80 mg PO QAM #90 tab 01/01/21 01/16/21 01/16/21 levothyroxine 125 mcg PO QAM 01/16/21 01/16/21 01/16/21 Active Medications Generic Name Dose Route Start Last Admin Trade Name Freq PRN Reason Stop Dose Admin Sodium Chloride 1,000 mls @ 125 mls/hr 01/16/21 13:30 01/16/21 14:07 Nss 1000ml IV 02/15/21 13:29 125 mls/hr .Q8H DEVONTE Administration NPO Date Last Intake of Fluids: 01/16/21 Time Last Intake of Fluids: 08:15 Date Last Intake of Solids: 01/16/21 Time Last Intake of Solids: 08:15 Last Intake of Solids Comment: [place] x2, raisin bran, banana, orange juice. Dr. Spring aware Past Medical History Medical History Asymmetrical left sensorineural hearing loss Extrasystole Hypertension Hypothyroid Mineral deficiency Osteoporosis 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 hearing of right ear SNHL (sensorineural hearing loss) Uterus prolapse Exercise / Class Metabolic Activity II 4-5 Yardwork/Stairs/Walk up hill Past Family History Family History Father Colon cancer COPD (chronic obstructive pulmonary disease) Unknown Ovarian cancer Mother Cervical cancer Brother Carcinoma of pancreas Other Arthritis Diabetes Denies family history of Myocardial infarction Breast cancer Lung cancer Colorectal cancer Hypertension Stroke Past Surgical History Surgical History Hernia History of cataract surgery History of dilation and curettage History of partial hysterectomy Past Anesthesia History No Hx of Anesthesia Complications and No Family Hx of Anesthesia Complications History of PONV No Hx of PONV and No Hx of Motion Sickness Social History Smoking Status: Never smoker Hx Alcohol Use: No Hx Substance Use: No Review of Systems denies fever/cough/ colds/ chest pain/ SOB/ SHERMAN denies SHERMAN Physical Exam Vital Signs Last Vital Signs Temp 36.6 C 01/16/21 15:02 Pulse 76 01/16/21 15:02 Resp 20 01/16/21 15:02 BP 163/75 H 01/16/21 15:02 Pulse Ox 96 01/16/21 15:02 ENMT Mouth: no TMJ abnormality and no dentition abnormality Thyromental Distance: > or= 3.5 Finger Breadths Mallampati Class: II Neck neck extension not limited Respiratory normal respiratory effort; no respiratory distress Auscultation: lungs clear to auscultation bilaterally Cardiovascular Rate/Rhythm: regular rate and regular rhythm Neurologic moves all extremities Psychiatric Orientation: alert and oriented x 3 Testing Laboratory Results 01/16/21 12:43 01/16/21 12:43 PT 10.3 Seconds (9.0-12.0) 01/16/21 12:43 INR 1.0 (0.9-1.1) 01/16/21 12:43 APTT 28.4 Seconds (21.0-31.0) 01/16/21 12:43 Blood Type O Negative 01/16/21 12:43 Antibody Screen NEGATIVE 01/16/21 12:43
[2021-01-16] MEDS ORDERED: fentaNYL citrate 100 MCG/2 ML VIAL ONE (15:25)
[2021-01-16] MEDS ORDERED: ceFAZolin 2000MG 2,000 MG/15 ML SYR IV ONE (15:39)
--- NOTE | 2021-01-16 15:45 | Orthopedic Consultation ---
Date of Service January 16, 2021 Assessment & Plan (1) Closed left hip fracture: We discussed the diagnosis and treatment options with her at bedside. She is still community ambulator with a cane. I recommended a cemented left hip hemiarthroplasty. We discussed the risks, benefits, and alternatives to the procedure with her and her son at bedside and they elected to proceed. Time was spent describing the procedure and postop expectations. The decision was made for surgery. She is already been medically cleared. She has been n.p.o. since this morning. We will do the procedure this afternoon. History of Present Illness Reason for Consultation: Left femoral neck fracture . Requesting Physician: . Geneva is a pleasant 89-year-old female who is a community ambulator with a cane. She fell couple days ago. She has been having left hip pain. She saw her primary care physician today and x-ray was ordered. The x-ray showed a displa jeannette femoral neck fracture and she came to the emergency room. She was seen by the hospitalist and cleared for surgery. Her son was with her at bedside. . Allergies Allergy/AdvReac Type Severity Reaction Status Date / Time No Known Allergies Allergy Verified 01/16/21 14:44 Home Medications Medication Instructions Recorded Confirmed Type aspirin 81 mg tablet,delayed 81 mg PO QAM 02/28/19 01/16/21 History release Ca 600 mg-D3 20 mcg-mag oxide 50 1 tab PO QAM tab 03/07/19 01/16/21 History op-Bi-exfjmq-manganese-boron tablet multivitamin 1 tab PO QAM 03/07/19 01/16/21 History cholecalciferol (vitamin D3) 25 25 mcg PO BID tab 08/25/19 01/16/21 History mcg (1,000 unit) tablet atenolol 50 mg tablet 50 mg PO QAM #90 tab 11/01/20 01/16/21 Rx telmisartan 80 mg tablet 80 mg PO QAM #90 tab 01/01/21 01/16/21 Rx levothyroxine 125 mcg PO QAM 01/16/21 01/16/21 History Past Med/Surg History Medical History Asymmetrical left sensorineural hearing loss Extrasystole Hypertension Hypothyroid Mineral deficiency Osteoporosis 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 hearing of right ear SNHL (sensorineural hearing loss) Uterus prolapse Surgical History Hernia History of cataract surgery History of dilation and curettage History of partial hysterectomy Family History Father Colon cancer COPD (chronic obstructive pulmonary disease) Unknown Ovarian cancer Mother Cervical cancer Brother Carcinoma of pancreas Other Arthritis Diabetes Denies family history of Myocardial infarction Breast cancer Lung cancer Colorectal cancer Hypertension Stroke Social History Smoking Status: Never smoker Second Hand Exposure: No; Hx Alcohol Use: No Hx Substance Use: No Preferred Language: Upper Sorbian Communication Ability: Effective Visual Impairment: Limited Hearing Ability: Use of Hearing Aid Back End Web Developer Required: No marital status: Current Living Situation: Spouse current occupational status: retired Feels Safe at Home: Yes Childhood Exposure to Second-Hand Smoke: No caffeine: Yes Dental Care, Regularly: Yes Physical Activity Frequency: 1-2 Times per Week Seatbelt Use: always Sunscreen Use: Yes Review of Systems All systems reviewed & are unremarkable except as noted in HPI & below. Physical Exam On physical examination of the left hip, the left leg is slightly shortened and externally rotated. She has pain with any range of motion of the left hip. There are no abrasions, lesions, or lacerations of the skin. . Constitutional WD/WN, vitals as above Eyes PERRL, conjunctivae normal, anicteric sclerae ENMT external ear and nose normal, oropharynx normal Neck trachea midline, no thyromegaly Respiratory normal respiratory effort Cardiovascular RRR, no murmur, no edema Gastrointestinal (Abdomen) normal bowel sounds, soft, nontender, no hepatosplenomegaly Psychiatric A+Ox3, euthymic affect Results & Data Results & Data Laboratory Results . Diagnostic Findings X-rays of the left hip do show a moderately displaced left femoral neck fracture . PG Care Time/CCT Total # of Minutes Spent Total Time Spent with Patient: Total time spent is greater than 50% in coordination of care (as documented) at patient's floor/unit and/or counseling patient: Coding Level of Care Code 78831 Inpt Consult Level 4 (57 - DECISION FOR SURGERY) Diagnoses Closed left hip fracture S72.002A Encounter type: initial encounter (1) Closed left hip fracture Encounter type: initial encounter Qualified Code(s): S72.002A - Fracture of unspecified part of neck of left femur, initial encounter for closed fracture
[2021-01-16] MEDS ORDERED: BUPIVACAINE/EPINEPHRINE 0.5% MPF 1:200,000 30 ML VIAL ONE (16:56)
[2021-01-16] MEDS ORDERED: PROPOFOL IV EMULSION 10 MG/ML 20 ML VIAL IV ONE ×2 (17:16)
[2021-01-16] MEDS ORDERED: GLYCOPYRROLATE 0.2 MG/ML VIAL ONE (17:29)
--- NOTE | 2021-01-16 18:08 | Operative Report ---
PG Post Operative Report Pre & Post Diagnosis Operation Date: 01/16/21 14:15 Pre-Op Diagnosis: Left femoral neck fracture Post-Op Diagnosis: Left femoral neck fracture I identified the patient and participated in the time-out.: Yes Procedure Operation Date: 01/16/21 14:15 Actual Procedures p Left Cemented Anterior Bipolar Hip(Left) - Ramon Cunningham DO Surgeon Ramon Cunningham, Sas Developer Analyst Ramon Diop PAC Estimated Blood Loss 150 Findings Consistent with Post-Op Diagnosis Specimens Left femoral head Complications none Disposition Disposition: Recovery Room Indications Geneva is a pleasant 89-year-old female who fell couple days ago sustaining a le ft hip fracture. She saw her primary care physician yesterday and x-rays were obtained. The x-rays showed a displaced left femoral neck fracture. She was admitted to the hospitalist service and after consultation with orthopedics the decision was made to proceed with a left hip cemented hemiarthroplasty. Description of Procedure Implants used: I used a Eric LDFX size 12 femoral cemented stem with a 46 mm shell and a 28 mm head with a +3.5 mm neck On January 16, 2021 Geneva was brought from the emergency room directly to the preoperative holding area. The operative extremity was identified and signed. She was given a preoperative antibiotic and a spinal anesthetic. She was taken back to the operating room and laid on the table in supine position. She was put under basic sedation. The left leg was brought out to a Purist leg positioner. The left hip was then prepped and draped in sterile fashion.A timeout was done. The patient and the operative extremity was properly identified. An anterior approach was used. Dissection was taken down through the fascia. The tensor muscle belly was retracted laterally and the rectus was retracted medially. The capsule was exposed. The capsule was then incised and tagged. The fracture was easily identified. The femoral neck was then resected. The femoral neck was removed and the femoral head was removed.The acetabulum was then inspected and there was no cartilage damage of the acetabulum. The femoral head measured to be a size 46. The proximal femur was then exposed. Sequential broaching up to a size 12 broach was done. A 46 mm shell with a +3.5 standard offset neck was trialed. Fluoroscopic images showed anatomic alignment of the hip and good sizing of the components. The hip was then dislocated. The broach was removed. The final size 12 LDFX femoral stem was cemented in place with Simplex HV cement. A 28 mm head with a +3.5 mm neck was then snapped into a 46 mm shell. The hip was then reduced. Final fluoroscopic images showed anatomic alignment of the hip. The capsule was then closed with #1 Vicryl suture. A 3- minute Betadine lavage was then done. The surrounding soft tissues were injected with Marcaine. The wound was then irrigated. The fascia was closed with #1 PDS suture. The deep fascial layer was closed with 2-0 Vicryl. Skin was closed with 3-0 Vicryl and enoch. She was then placed in a Silverlon dressing. She was then extubated and transferred to a [facility]. She was taken to the post anesthesia care unit in stable condition. She tolerated the procedure well. Ramon Diop PA-C, was present for the entire procedure. He was critical for patient positioning, prepping, draping, retraction exposure, wound closure and application of sterile dressing. I attest to the content of the Intraoperative Record and any orders documented therein. Any exceptions are noted below.
--- NOTE | 2021-01-16 18:12 | Fluoroscopy Report ---
FL hip LT 1V CLINICAL HISTORY: LT CEMENTED ANTERIOR HIP COMPARISON STUDY: X-ray study dated 01/16/2021 FLUOROSCOPY TIME: 10 seconds. NUMBER OF FLUOROSCOPIC IMAGES: 3 FINDINGS: 3 intraoperative fluoroscopic spot images demonstrate placement of a bipolar left hip arthr oplasty. IMPRESSION: Intraoperative fluoroscopic spot images demonstrating placement of a bipolar left hip ar throplasty. No dislocation is visualized. ACT 112: Negative or not required by law. Electronically signed by: Cristiano Zepeda M.D. 01/16/2021 6:11 PM
[2021-01-16] MEDS ORDERED: LIDOCAINE 2% 20 MG/ML 5 ML SYR IV ONE (18:13)
--- NOTE | 2021-01-16 18:36 | XRay Report ---
XR hip LT min 2V CLINICAL HISTORY: Hip fracture. Postoperative study COMPARISON: 01/16/2021 DISCUSSION: There are postsurgical changes of a bipolar left hip arthroplasty. There is no dislocatio n. There is gas within soft tissues consistent with recent surgery. There are overlying skin enoch. IMPRESSION: Bipolar total left hip arthroplasty. No evidence of dislocation ACT 112: Negative or not required by law. Electronically signed by: Cristiano Zepeda M.D. 01/16/2021 6:34 PM
--- NOTE | 2021-01-16 19:45 | Anesthesiology Progress Note ---
Date of Service January 16, 2021 Anesthesia Post Procedure Vital Signs Vital Signs: Temp Pulse Pulse Pulse Resp BP BP 01/16/21 19:10 36.2 C L 01/16/21 19:05 36.2 C L 63 16 136/70 01/16/21 18:55 63 16 136/70 01/16/21 18:45 67 16 144/90 H 01/16/21 18:35 65 16 129/83 01/16/21 18:28 36.0 C L 65 16 123/92 01/16/21 15:02 36.6 C 76 20 163/75 H 01/16/21 14:30 82 20 154/74 H 01/16/21 14:00 61 19 158/78 H 01/16/21 13:32 67 24 165/90 H 01/16/21 11:56 36.4 C L 65 18 165/92 H Pulse Ox 01/16/21 19:10 01/16/21 19:05 95 01/16/21 18:55 95 01/16/21 18:45 95 01/16/21 18:35 95 01/16/21 18:28 95 01/16/21 15:02 96 01/16/21 14:30 97 01/16/21 14:00 97 01/16/21 13:32 96 01/16/21 11:56 98 Transfer of Care Handoff Completed per policy Notes Mental Status: alert / awake / arousable Patient Amnestic to Procedure: Yes Nausea / Vomiting: adequately controlled Pain: adequately controlled Airway Patency, RR, SpO2: stable & adequate BP & HR: stable & adequate Hydration State: stable & adequate Neuraxial Anesthesia: was administered and sensory block is resolving Anesthetic Complications: no major complications apparent
[2021-01-16] MEDS ORDERED: NALOXONE HCL 0.4 MG/1 ML VIAL/CARP IV PRN ×2 (19:53→20:00)
[2021-01-16] MEDS ORDERED: ACETAMINOPHEN 325 MG TAB PO PRN (20:00)
[2021-01-16] MEDS ORDERED: oxyCODONE HCL IR 5 MG TAB (IMMEDIATE RELEASE) PO PRN ×2 (20:00)
[2021-01-16] MEDS ORDERED: bisacodyL 10 MG SUPP PR PRN (20:00)
[2021-01-16] MEDS ORDERED: MAGNESIUM HYDROXIDE SUSP 30 ML UDC PO PRN (20:00)
[2021-01-16] MEDS: ASPIRIN 81 MG ECTAB PO SCH (22:25)
[2021-01-16] MEDS: DOCUSATE SODIUM/SENNA 50/8.6MG TAB PO SCH (22:26)
[2021-01-16 23:46] LABS: Appearance Urine Clear (Clear); Bacteria Urine Automated Negative (Negative); Bilirubin Urine Negative (Negative); Blood Urine 2+ (Negative); Color Urine Yellow; Epithelial Cell Urine Auto 0-5 /lpf (0-5); Glucose Urine UA Negative (Negative); Ketones Urine Negative (Negative); Leukocyte Esterase Urine 1+ (Negative); Nitrite Urine Negative (Negative); Protein Urine Negative (Negative); RBC Urine Automated >30 /hpf (0-4); Specific Gravity Urine 1.025 (1.000-1.030); Urobilinogen Urine Negative (Negative); WBC Urine Automated >30 /hpf (0-5)
[2021-01-17] MEDS: SODIUM CHLORIDE 0.9% 1000ML 1,000 ML IV SCH (04:20)
[2021-01-17] MEDS: LEVOTHYROXINE SODIUM 125 MCG TABLET PO SCH (05:54)
--- NOTE | 2021-01-17 06:12 | Electrocardiogram Report ---
Test Reason : Blood Pressure : / mmHG Vent. Rate : 066 BPM Atrial Rate : 066 BPM P-R Int : 118 ms QRS Dur : 092 ms QT Int : 472 ms P-R-T Axes : 000 001 135 degrees QTc Int : 494 ms Poor data quality, interpretation may be adversely affected Sinus rhythm with Premature atrial complexes Left ventricular hypertrophy with repolarization abnormality Prolonged QT Abnormal ECG When compared with ECG of 17-OCT-2019 10:37, Premature ventricular complexes are no longer Present Premature atrial complexes are now Present Confirmed by Emile Us ([id number]) on 01/17/2021 6:11:47 AM Referred By: REFERRED SELF Confirmed By:Emile Us
[2021-01-17 08:31] LABS: Basophils # (auto) 0.02 K/uL (0-0.2); Basophils % (auto) 0.2 %; Eosinophils # (auto) 0.06 K/uL (0-0.5); Eosinophils % (auto) 0.7 %; Hematocrit (blood only) 36.1 % (37-47); Hemoglobin 11.9 g/dL (12.0-16.0); Immature Granulocytes # (auto) 0.04 K/uL (0.00-0.02); Immature Granulocytes % (auto) 0.5 %; Lymphocytes # (auto) 0.45 K/uL (1.2-3.4); Lymphocytes % (auto) 5.2 %; Mean Corpuscular Hemoglobin 30.9 pg (25-34); Mean Corpuscular Volume 93.8 fL (80-100); Mean Platelet Volume 9.7 fL (7.4-10.4); Monocytes % (auto) 9.3 %; Neutrophils # (auto) 7.21 K/uL (1.4-6.5); Neutrophils % (auto) 84.1 %; Platelet Count 175 K/uL (130-400); RDW Coefficient of Variation 13.2 % (11.5-14.5); RDW Standard Deviation 45.7 fL (36.4-46.3); Red Blood Count 3.85 M/uL (4.2-5.4); White Blood Count 8.58 K/uL (4.8-10.8)
[2021-01-17 08:47] LABS: BUN Creatinine Ratio 27.5 (10-20); Calcium 8.1 mg/dl (8.5-10.1); Creatinine Clr Calc Pharmacy 90.1 ml/min; Est GFR (African American) 110.8 ml/min; Est GFR (Non-African American) 95.6 ml/min; Potassium 3.8 mmol/L (3.5-5.1)
[2021-01-17] MEDS: ASPIRIN 81 MG ECTAB PO SCH ×2 (09:04→21:34)
[2021-01-17] MEDS: TELMISARTAN 40 MG TAB PO SCH (09:04)
[2021-01-17] MEDS: ATENOLOL 50 MG TABLET PO SCH (09:04)
[2021-01-17] MEDS: MULTIVITAMIN TAB PO SCH (09:04)
--- NOTE | 2021-01-17 13:49 | Hospitalist Progress Note ---
Date of Service January 17, 2021 Assessment & Plan (1) Closed left hip fracture: S/p Left Cemented Anterior Bipolar Hip with Dr. Cunningham on 01/17 - Doing well post-operatively. - Post-op care per surgical team - PT/OT -> So far recommending rehab. - ASA 81 mg PO BID per surgical team (2) HTN (hypertension): BP today is 110/70, but was higher overnight (~160/80s). - Continue atenolol & telmisartan (3) Cardiomegaly: Reported in admission note, but I don't see it in other recent PCP notes. - Consider follow up TTE as outpatient. No acute indication of needs. (4) Hypothyroidism: TSH was 1.05 in November 2020. - Continue levothyroxine 125 mcg p.o. daily (5) SIADH (syndrome of inappropriate ADH production): Chronic hyponatremia at baseline with Na ~130-131. - At baseline. (6) Osteoporosis: Severe per prior bone density in 2019. - Already taking alendronate, hold deloris-operatively. (7) Recurrent falls: No specific etiology other than tripping. - PT/OT evals recommend rehab. (8) DVT prophylaxis: ASA 81 mg PO BID Admission and Anticipated Discharge Date Admission Date: January 16, 2021 Subjective Doing quite well. No pain. Reports no fevers/chills, chest pain, shortness of breath, abdominal pain, nausea, or vomiting. Physical Exam Constitutional: WD/WN, vitals as above Eyes: EOM intact bilaterally; no conjunctival abnormality ENMT: external ear and nose normal, oropharynx normal Neck: trachea midline, no thyromegaly normal visual inspection Respiratory: normal respiratory effort, lungs clear to auscultation no respiratory distress Cardiovascular: RRR, no murmur, no edema Gastrointestinal (Abdomen): Inspection/Auscultation: abdomen normal to inspection; abdomen not distended Musculoskeletal: no cyanosis or clubbing, extremities motor strength 5/5 Skin: no rashes, warm and dry Neurologic: moves all extremities and awake Psychiatric: Orientation: alert, oriented to person and cooperative Results & Data Results & Data ([facility]) Vital Signs (Past 12 Hours) Vital Signs Temp Pulse Resp BP Pulse Ox Pulse Ox 01/17/21 11:57 36.9 C 67 18 111/70 96 01/17/21 07:57 37.1 C 71 17 155/77 H 96 01/17/21 06:42 91 01/17/21 02:51 36.4 C L 61 16 165/85 H 96 PG Care Time/CCT Total # of Minutes Spent Total Time Spent with Patient: Total time spent is greater than 50% in coordination of care (as documented) at patient's floor/unit and/or counseling patient: Coding Level of Care Code 37757 Subseq Hosp Care Lvl 2 Diagnoses Closed left hip fracture S72.002A Encounter type: initial encounter HTN (hypertension) I10 Hypertension type: essential hypertension Cardiomegaly I51.7 Hypothyroidism E03.9 Hypothyroidism type: acquired SIADH (syndrome of inappropriate ADH production) E22.2 Osteoporosis M80.00XA Osteoporosis type: age-related Presence of current pathological fracture: with current pathological fracture Encounter type: initial encounter Recurrent falls R29.6 DVT prophylaxis Z29.9 (1) Closed left hip fracture Encounter type: initial encounter Qualified Code(s): S72.002A - Fracture of unspecified part of neck of left femur, initial encounter for closed fracture (2) HTN (hypertension) Hypertension type: essential hypertension Qualified Code(s): I10 - Essential (primary) hypertension (3) Hypothyroidism Hypothyroidism type: acquired Qualified Code(s): E03.9 - Hypothyroidism, unspecified (4) Osteoporosis Osteoporosis type: age-related Presence of current pathological fracture: with current pathological fracture Encounter type: initial encounter Qualified Code(s): M80.00XA - Age-related osteoporosis with current pathological fracture, unspecified site, initial encounter for fracture
[2021-01-17] MEDS ORDERED: IRON SUCROSE 300 MG in SODIUM CHLORIDE 0.9% 250 ML IV ONE (14:30)
--- NOTE | 2021-01-17 14:37 | Orthopedic Progress Note ---
Date of Service January 17, 2021 Assessment & Plan (1) Status post left hip replacement: Overall she is doing fairly well. She was able to ambulate 35 feet with physical therapy today. She is not having any pain in the left hip. She is working with case management for discharge to a nursing facility. She is orthopedically stable for discharge when medically ready. Full orthopedic discharge instructions were placed in the discharge summary. Jevon Bean was seen and examined at bedside today. Overall she is doing fairly well. She was able to ambulate some with physical therapy today. Her son is with her at bedside. She is not having any pain in her hip. She has no complaints. . Review of Systems All systems reviewed & are unremarkable except as noted in HPI & below. Physical Exam On physical examination of the left hip, the dressing is clean and dry. Her leg lengths are equal. She has active dorsiflexion plantarflexion of her left ankle. . Results & Data Results & Data Laboratory Results . Diagnostic Findings Postoperative x-rays of the left hip show the prosthesis to be in anatomic alignment without any evidence of fracture, dislocation, or loosening . PG Care Time/CCT Total # of Minutes Spent Total Time Spent with Patient: Total time spent is greater than 50% in coordination of care (as documented) at patient's floor/unit and/or counseling patient: Coding Level of Care Code 06870 Post Operative Follow-Up Diagnoses Status post left hip replacement Z96.642
[2021-01-17] MEDS: DOCUSATE SODIUM/SENNA 50/8.6MG TAB PO SCH (21:34)
[2021-01-18] MEDS: LEVOTHYROXINE SODIUM 125 MCG TABLET PO SCH (05:39)
[2021-01-18 06:11] LABS: Hematocrit (blood only) 31.7 % (37-47); Hemoglobin 10.8 g/dL (12.0-16.0); Mean Corpuscular Hgb Conc 34.1 g/dL (32-36); Mean Corpuscular Volume 91.1 fL (80-100); Platelet Count 193 K/uL (130-400); RDW Standard Deviation 43.5 fL (36.4-46.3); Red Blood Count 3.48 M/uL (4.2-5.4); White Blood Count 7.74 K/uL (4.8-10.8)
[2021-01-18 06:40] LABS: BUN Creatinine Ratio 32.7 (10-20); Calcium 8.1 mg/dl (8.5-10.1); Creatinine Clr Calc Pharmacy 101.4 ml/min; Est GFR (African American) 115.2 ml/min; Est GFR (Non-African American) 99.4 ml/min; Magnesium 1.8 mg/dl (1.8-2.4); Potassium 3.6 mmol/L (3.5-5.1)
--- NOTE | 2021-01-18 07:40 | Orthopedic Progress Note ---
Date of Service January 18, 2021 Assessment & Plan (1) Status post left hip replacement: Overall she is doing fairly well. She denies any much pain in the left hip. She was able to ambulate about 35 feet yesterday with physical therapy. She can be weightbearing as tolerated. She will be on aspirin 81 mg twice a day for DVT prophylaxis. She is orthopedically stable for discharge when medically ready. Full orthopedic discharge instructions were placed in the discharge summary. Jevon Jo was seen and examined at bedside this morning. Overall she is doing fairly well. She is not having any pain in the left hip. She was able to get some sleep last night. She has no new complaints.. Review of Systems All systems reviewed & are unremarkable except as noted in HPI & below. Physical Exam On physical examination of the left hip, the dressing is clean and dry. She has active dorsiflexion and plantarflexion of her left ankle. Her leg lengths are equal.. Results & Data Results & Data Laboratory Results . Diagnostic Findings . PG Care Time/CCT Total # of Minutes Spent Total Time Spent with Patient: Total time spent is greater than 50% in coordination of care (as documented) at patient's floor/unit and/or counseling patient: Coding Level of Care Code 34591 Post Operative Follow-Up Diagnoses Status post left hip replacement Z96.642
[2021-01-18] MEDS: ATENOLOL 50 MG TABLET PO SCH (08:59)
[2021-01-18] MEDS: ASPIRIN 81 MG ECTAB PO SCH ×2 (08:59→22:52)
[2021-01-18] MEDS: MULTIVITAMIN TAB PO SCH (08:59)
[2021-01-18] MEDS: TELMISARTAN 40 MG TAB PO SCH (09:00)
[2021-01-18] MEDS ORDERED: IRON SUCROSE 300 MG in SODIUM CHLORIDE 0.9% 250 ML IV ONE (09:30)
--- NOTE | 2021-01-18 11:35 | Hospitalist Progress Note ---
Date of Service January 18, 2021 Assessment & Plan (1) Closed left hip fracture: S/p Left Cemented Anterior Bipolar Hip with Dr. Cunningham on 01/17 - Doing well post-operatively. - Post-op care per surgical team - PT/OT -> So far recommending rehab. - ASA 81 mg PO BID per surgical team -> Doing great. No issues with pain control. Working with PT/OT. Plan for [facility] tomorrow v. Wednesday. (2) HTN (hypertension): BP today is 130/70, but was higher overnight (~160/80s). - Continue atenolol & telmisartan (3) Cardiomegaly: Reported in admission note, but I don't see it in other recent PCP notes. - Consider follow up TTE as outpatient. No acute indication of needs. (4) Hypothyroidism: TSH was 1.05 in November 2020. - Continue levothyroxine 125 mcg p.o. daily (5) SIADH (syndrome of inappropriate ADH production): Chronic hyponatremia at baseline with Na ~130-131. - At baseline. (6) Osteoporosis: Severe per prior bone density in 2019. - Already taking alendronate, hold deloris-operatively. (7) Recurrent falls: No specific etiology other than tripping. - PT/OT evals recommend rehab. (8) DVT prophylaxis: ASA 81 mg PO BID Admission and Anticipated Discharge Date Admission Date: January 16, 2021 Subjective No issues today. She reports her pain has been actually quite minimal since the surgery. Reports no fevers/chills, chest pain, shortness of breath, abdominal pain, nausea, or vomiting. Physical Exam Constitutional: WD/WN, vitals as above Eyes: EOM intact bilaterally; no conjunctival abnormality ENMT: external ear and nose normal, oropharynx normal Neck: trachea midline, no thyromegaly normal visual inspection Respiratory: normal respiratory effort, lungs clear to auscultation no respiratory distress Cardiovascular: RRR, no murmur, no edema Gastrointestinal (Abdomen): Inspection/Auscultation: abdomen normal to inspection; abdomen not distended Musculoskeletal: no cyanosis or clubbing, extremities motor strength 5/5 Skin: no rashes, warm and dry Neurologic: moves all extremities and awake Psychiatric: Orientation: alert, oriented to person and cooperative Results & Data Results & Data ([facility]) Vital Signs (Past 12 Hours) Vital Signs Temp Pulse Resp BP Pulse Ox 01/18/21 07:36 36.5 C 66 16 128/65 96 PG Care Time/CCT Total # of Minutes Spent Total Time Spent with Patient: Total time spent is greater than 50% in coordination of care (as documented) at patient's floor/unit and/or counseling patient: Coding Level of Care Code 17880 Subseq Hosp Care Lvl 2 Diagnoses Closed left hip fracture S72.002A Encounter type: initial encounter HTN (hypertension) I10 Hypertension type: essential hypertension Cardiomegaly I51.7 Hypothyroidism E03.9 Hypothyroidism type: acquired SIADH (syndrome of inappropriate ADH production) E22.2 Osteoporosis M80.00XA Osteoporosis type: age-related Presence of current pathological fracture: with current pathological fracture Encounter type: initial encounter Recurrent falls R29.6 DVT prophylaxis Z29.9 (1) Closed left hip fracture Encounter type: initial encounter Qualified Code(s): S72.002A - Fracture of unspecified part of neck of left femur, initial encounter for closed fracture (2) HTN (hypertension) Hypertension type: essential hypertension Qualified Code(s): I10 - Essential (primary) hypertension (3) Hypothyroidism Hypothyroidism type: acquired Qualified Code(s): E03.9 - Hypothyroidism, unspecified (4) Osteoporosis Osteoporosis type: age-related Presence of current pathological fracture: with current pathological fracture Encounter type: initial encounter Qualified Code(s): M80.00XA - Age-related osteoporosis with current pathological fracture, unspecified site, initial encounter for fracture
[2021-01-18] MEDS: DOCUSATE SODIUM/SENNA 50/8.6MG TAB PO SCH (22:52)
[2021-01-19] MEDS: LEVOTHYROXINE SODIUM 125 MCG TABLET PO SCH (05:36)
[2021-01-19 05:52] LABS: Hematocrit (blood only) 30.7 % (37-47); Hemoglobin 10.6 g/dL (12.0-16.0); Mean Corpuscular Hemoglobin 30.9 pg (25-34); Mean Corpuscular Hgb Conc 34.5 g/dL (32-36); Mean Corpuscular Volume 89.5 fL (80-100); Mean Platelet Volume 9.8 fL (7.4-10.4); Platelet Count 188 K/uL (130-400); RDW Coefficient of Variation 13.1 % (11.5-14.5); RDW Standard Deviation 42.7 fL (36.4-46.3); Red Blood Count 3.43 M/uL (4.2-5.4); White Blood Count 9.29 K/uL (4.8-10.8)
[2021-01-19 06:12] LABS: BUN Creatinine Ratio 23.5 (10-20); Calcium 7.9 mg/dl (8.5-10.1); Creatinine Clr Calc Pharmacy 98.3 ml/min; Est GFR (Non-African American) 98.4 ml/min; Magnesium 1.7 mg/dl (1.8-2.4); Potassium 3.8 mmol/L (3.5-5.1)
[2021-01-19] MEDS: ASPIRIN 81 MG ECTAB PO SCH ×2 (08:27→19:17)
[2021-01-19] MEDS: ATENOLOL 50 MG TABLET PO SCH (08:27)
[2021-01-19] MEDS: MULTIVITAMIN TAB PO SCH (08:27)
[2021-01-19] MEDS: TELMISARTAN 40 MG TAB PO SCH (08:28)
[2021-01-19] MEDS ORDERED: BUMETANIDE 1 MG TAB PO ONE (09:00)
[2021-01-19] MEDS: SODIUM CHLORIDE 1 GM TABLET PO SCH ×2 (09:11→19:18)
[2021-01-19] MEDS: MAGNESIUM SULFATE / D5W 1 GM/100 ML BAG IV SCH ×3 (09:12→10:33)
--- NOTE | 2021-01-19 09:27 | Nephrology Consultation ---
Date of Consultation January 19, 2021 Assessment & Plan (1) SIADH (syndrome of inappropriate ADH production): * Clinically euvolemic with normal thyroid and kidney function. No clinical evidence of adrenal insufficiency. Elevated Uosm is suggestive of high ADH production possibly related to pain/hospitalization or SIADH * Will resume NaCl 1 g po BID * Will provide one dose Bumex 0.5 mg po x1 to promote free water excretion * Will ask pharmacy to change all IV medications to 0.9NS * Follow up PRP, Uosm ordered for am (2) HTN (hypertension): * BP remains reasonably well controlled * Continue Atenolol and Telmisartan (3) Hypothyroidism: * On levothyroxine therapy * 12/13 TSH - wnl (4) Osteoporosis: (5) Status post left hip replacement: (6) SNHL (sensorineural hearing loss): History of Present Illness Reason for Consultation: Hyponatremia Attending Physician: Elbert Mcgill MD History of Present Illness Ms. Linda is an 89 year old white female who is seen at the request of Dr. Mcgill for evaluation of hyponatremia. Medical records in the EMR were reviewed today and are summarized as follows: Ms. Linda has a h/o chronic hyponatremia w/ serum sodium typically 130 mmol/L. Nephrology evaluation by Dr. Parra 12/10 was c/w SIADH. Sodium was maintained stable in the 130 - 135 mmol/L range w/ NaCl 1g po BID. Ms. Linda's medical history is also significant for hypothyroidism, HTN, L sensorineural hearing loss, hypoalbuminemia, and osteoporosis. Ms. Linda has fallen several times at home. She presented to the hospital 01/16/21, was diagnosed w/ an impacted subcapital fracture of the L femur. She subsequently underwent L hip replacement. Patient reports that she stopped NaCl supplements prior to this hospitalization. Serum sodium has dropped from 130 to 126 mmol/L. Uosm this morning was 634 mOsm/kg. Allergies Allergy/AdvReac Type Severity Reaction Status Date / Time No Known Allergies Allergy Verified 01/16/21 14:44 Home Medications Medication Instructions Recorded Confirmed Type aspirin 81 mg tablet,delayed 81 mg PO QAM 02/28/19 01/16/21 History release Ca 600 mg-D3 20 mcg-mag oxide 50 1 tab PO QAM tab 03/07/19 01/16/21 History oc-Eg-xifurn-manganese-boron tablet multivitamin 1 tab PO QAM 03/07/19 01/16/21 History cholecalciferol (vitamin D3) 25 25 mcg PO BID tab 08/25/19 01/16/21 History mcg (1,000 unit) tablet atenolol 50 mg tablet 50 mg PO QAM #90 tab 11/01/20 01/16/21 Rx telmisartan 80 mg tablet 80 mg PO QAM #90 tab 01/01/21 01/16/21 Rx levothyroxine 125 mcg PO QAM 01/16/21 01/16/21 History Patient History Medical History Asymmetrical left sensorineural hearing loss Extrasystole Hypertension Hypothyroid Mineral deficiency Osteoporosis 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 hearing of right ear SNHL (sensorineural hearing loss) Uterus prolapse Surgical History Hernia History of cataract surgery History of dilation and curettage History of partial hysterectomy Family History Father Colon cancer COPD (chronic obstructive pulmonary disease) Unknown Ovarian cancer Mother Cervical cancer Brother Carcinoma of pancreas Other Arthritis Diabetes Denies family history of Myocardial infarction Breast cancer Lung cancer Colorectal cancer Hypertension Stroke Social History Smoking Status: Never smoker Second Hand Exposure: No; Do You Dip or Chew Tobacco: No; Tobacco Cessation Education Requested by Patient: No Hx Alcohol Use: No Hx Substance Use: No Preferred Language: Italian Communication Ability: Effective Visual Impairment: Limited Hearing Ability: Use of Hearing Aid Sample Maker Required: No Beliefs That Will Affect Care: Buddhist Buddhist Beliefs: Baptist. marital status: / Current Living Situation: Alone current occupational status: retired Other Information That Helps Us Care for You: No Feels Safe at Home: Yes Safety Concerns: Feels Safe At This Time Childhood Exposure to Second-Hand Smoke: No caffeine: Yes Dental Care, Regularly: Yes Physical Activity Frequency: 1-2 Times per Week Seatbelt Use: always Sunscreen Use: Yes Assistive Devices: Walker Review of Systems Constitutional: + weakness; no fever Eyes: no problem reported Ear, Nose, Mouth, Throat: no problem reported Respiratory: no dyspnea Cardiovascular: no chest pain and no edema Gastrointestinal: no abdominal pain and no nausea Genitourinary: no dysuria and no hematuria Musculoskeletal: no back pain Integumentary: no rash Neurologic: + falls; no confusion Physical Exam Constitutional: + frail appearing; not in distress hard of hearing Eyes: PERRL, conjunctivae normal, anicteric sclerae ENMT: external ear and nose normal, oropharynx normal Neck: trachea midline, no thyromegaly Respiratory: normal respiratory effort, lungs clear to auscultation Cardiovascular: RRR, no murmur, no edema Gastrointestinal (Abdomen): normal bowel sounds, soft, nontender, no hepatosplenomegaly Musculoskeletal: Extremities: no cyanosis Skin: no rashes, warm and dry Neurologic: awake; not confused Results & Data ([facility]) Vital Signs (Past 12 Hours) Vital Signs Temp Pulse Resp BP Pulse Ox 01/19/21 07:47 36.4 C L 73 16 145/77 H 95 01/18/21 22:00 36.9 C 76 22 157/74 H 93 Laboratory Tests 12/18/17 12/13/20 01/16/21 Unknown 09:06 12:43 WBC Hgb Hct Plt Count Sodium Potassium Chloride Carbon Dioxide BUN Creatinine Calcium Magnesium Albumin 3.0 L TSH 1.050 Urine Color Urine Appearance Urine pH Ur Specific [place] Urine Protein Urine Glucose (UA) Urine Blood Urine Nitrite Urine Bilirubin Ur Leukocyte Esterase Urine WBC (Auto) Urine RBC (Auto) U Hyaline Cast (Auto) Urine Bacteria (Auto) Urine Osmolality 784 01/16/21 01/19/21 01/19/21 23:28 04:56 05:28 WBC 9.29 Hgb 10.6 L Hct 30.7 L Plt Count 188 Sodium Potassium Chloride Carbon Dioxide BUN Creatinine Calcium Magnesium Albumin TSH Urine Color Yellow Urine Appearance Clear Urine pH 7.0 Ur Specific [place] 1.025 Urine Protein Negative Urine Glucose (UA) Negative Urine Blood 2+ H Urine Nitrite Negative Urine Bilirubin Negative Ur Leukocyte Esterase 1+ H Urine WBC (Auto) >30 H Urine RBC (Auto) >30 H U Hyaline Cast (Auto) 1-5 Urine Bacteria (Auto) Negative Urine Osmolality 634 01/19/21 05:28 WBC Hgb Hct Plt Count Sodium 126 L Potassium 3.8 Chloride 95 L Carbon Dioxide 28 BUN 8 Creatinine 0.33 L Calcium 7.9 L Magnesium 1.7 L Albumin TSH Urine Color Urine Appearance Urine pH Ur Specific [place] Urine Protein Urine Glucose (UA) Urine Blood Urine Nitrite Urine Bilirubin Ur Leukocyte Esterase Urine WBC (Auto) Urine RBC (Auto) U Hyaline Cast (Auto) Urine Bacteria (Auto) Urine Osmolality PG Care Time/CCT Total # of Minutes Spent Total Time Spent with Patient: Total time spent is greater than 50% in coordination of care (as documented) at patient's floor/unit and/or counseling patient: Coding Level of Care Code 25841 Inpt Consult Level 5 Diagnoses SIADH (syndrome of inappropriate ADH production) E22.2 HTN (hypertension) I10 Hypertension type: essential hypertension Hypothyroidism E03.9 Hypothyroidism type: acquired Osteoporosis M80.00XA Osteoporosis type: age-related Presence of current pathological fracture: with current pathological fracture Encounter type: initial encounter Status post left hip replacement Z96.642 SNHL (sensorineural hearing loss) H90.5 (1) Osteoporosis Osteoporosis type: age-related Presence of current pathological fracture: with current pathological fracture Encounter type: initial encounter Qualified Code(s): M80.00XA - Age-related osteoporosis with current pathological fracture, unspecified site, initial encounter for fracture (2) HTN (hypertension) Hypertension type: essential hypertension Qualified Code(s): I10 - Essential (primary) hypertension (3) Hypothyroidism Hypothyroidism type: acquired Qualified Code(s): E03.9 - Hypothyroidism, unspecified
[2021-01-19] MEDS: MAGNESIUM SULFATE 50% 1 GM in 0.9 % SODIUM CHLORIDE 100 ML IV SCH ×3 (10:34→14:34)
--- NOTE | 2021-01-19 10:54 | Hospitalist Progress Note ---
Date of Service January 19, 2021 Assessment & Plan (1) SIADH (syndrome of inappropriate ADH production): Chronic hyponatremia at baseline with Na ~130-131. - Na fell to 126 on 01/19. I think this likely is due to IV fluids gives during surgery with now very concentrated urine. - Discussed with nephrology on 01/19 -> Will start salt tabs with Bumex x 1. Monitor. (2) Closed left hip fracture: S/p Left Cemented Anterior Bipolar Hip with Dr. Cunningham on 01/17 - Doing well post-operatively. - Post-op care per surgical team - PT/OT -> So far recommending rehab. - ASA 81 mg PO BID per surgical team -> Doing great. No issues with pain control. Working with PT/OT. Plan for [facility] Wednesday v. Wednesday. (3) HTN (hypertension): BP today is 130/70, but was higher overnight (~160/80s). - Continue atenolol & telmisartan (4) Cardiomegaly: Reported in admission note, but I don't see it in other recent PCP notes. - Consider follow up TTE as outpatient. No acute indication of needs. (5) Hypothyroidism: TSH was 1.05 in November 2020. - Continue levothyroxine 125 mcg p.o. daily (6) Osteoporosis: Severe per prior bone density in 2019. - Already taking alendronate, hold deloris-operatively. (7) Recurrent falls: No specific etiology other than tripping. - PT/OT evals recommend rehab. (8) DVT prophylaxis: ASA 81 mg PO BID Admission and Anticipated Discharge Date Admission Date: January 16, 2021 Subjective Seen while eating breakfast. Doing well today. Minimal pain. Reports no fevers/chills, chest pain, shortness of breath, abdominal pain, nausea, or vomiting. Physical Exam Constitutional: WD/WN, vitals as above Eyes: EOM intact bilaterally; no conjunctival abnormality ENMT: external ear and nose normal, oropharynx normal Neck: trachea midline, no thyromegaly normal visual inspection Respiratory: normal respiratory effort, lungs clear to auscultation no respiratory distress Cardiovascular: RRR, no murmur, no edema Gastrointestinal (Abdomen): Inspection/Auscultation: abdomen normal to inspection; abdomen not distended Musculoskeletal: no cyanosis or clubbing, extremities motor strength 5/5 Skin: no rashes, warm and dry Neurologic: moves all extremities and awake Psychiatric: Orientation: alert, oriented to person and cooperative Results & Data Results & Data ([facility]) Vital Signs (Past 12 Hours) Vital Signs Temp Pulse Resp BP Pulse Ox 01/19/21 07:47 36.4 C L 73 16 145/77 H 95 PG Care Time/CCT Total # of Minutes Spent Total Time Spent with Patient: Total time spent is greater than 50% in coordination of care (as documented) at patient's floor/unit and/or counseling patient: Coding Level of Care Code 24253 Subseq Hosp Care Lvl 3 Diagnoses SIADH (syndrome of inappropriate ADH production) E22.2 Closed left hip fracture S72.002A Encounter type: initial encounter HTN (hypertension) I10 Hypertension type: essential hypertension Cardiomegaly I51.7 Hypothyroidism E03.9 Hypothyroidism type: acquired Osteoporosis M80.00XA Osteoporosis type: age-related Presence of current pathological fracture: with current pathological fracture Encounter type: initial encounter Recurrent falls R29.6 DVT prophylaxis Z29.9 (1) Closed left hip fracture Encounter type: initial encounter Qualified Code(s): S72.002A - Fracture of unspecified part of neck of left femur, initial encounter for closed fracture (2) HTN (hypertension) Hypertension type: essential hypertension Qualified Code(s): I10 - Essential (primary) hypertension (3) Hypothyroidism Hypothyroidism type: acquired Qualified Code(s): E03.9 - Hypothyroidism, unspecified (4) Osteoporosis Osteoporosis type: age-related Presence of current pathological fracture: with current pathological fracture Encounter type: initial encounter Qualified Code(s): M80.00XA - Age-related osteoporosis with current pathological fracture, unspecified site, initial encounter for fracture
[2021-01-19] MEDS ORDERED: SODIUM CHLOR 0.9% IV SCH (11:00)
[2021-01-19] MEDS ORDERED: AD VAN IV SCH (11:00)
[2021-01-19] MEDS ORDERED: MAGNESIUM SULFATE IV SCH (11:00)
[2021-01-19] MEDS: DOCUSATE SODIUM/SENNA 50/8.6MG TAB PO SCH (19:18)
[2021-01-20] MEDS: LEVOTHYROXINE SODIUM 125 MCG TABLET PO SCH (05:39)
[2021-01-20 06:39] LABS: BUN Creatinine Ratio 31.3 (10-20); Calcium 8.1 mg/dl (8.5-10.1); Creatinine Clr Calc Pharmacy 108.2 ml/min; Est GFR (African American) 117.7 ml/min; Est GFR (Non-African American) 101.5 ml/min; Potassium 3.5 mmol/L (3.5-5.1)
[2021-01-20] MEDS: TELMISARTAN 40 MG TAB PO SCH (08:09)
[2021-01-20] MEDS: ASPIRIN 81 MG ECTAB PO SCH ×2 (08:09→20:14)
[2021-01-20] MEDS: MULTIVITAMIN TAB PO SCH (08:09)
[2021-01-20] MEDS: ATENOLOL 50 MG TABLET PO SCH (08:09)
[2021-01-20] MEDS: SODIUM CHLORIDE 1 GM TABLET PO SCH ×2 (08:09→20:14)
[2021-01-20] MEDS ORDERED: BUMETANIDE 1 MG TAB PO ONE (08:58)
[2021-01-20] MEDS ORDERED: SODIUM CHLORIDE 1 GM TABLET PO ONE (08:59)
--- NOTE | 2021-01-20 09:05 | Nephrology Progress Note ---
Date of Service January 20, 2021 Assessment & Plan (1) SIADH (syndrome of inappropriate ADH production): * Clinically euvolemic with normal thyroid and kidney function. No clinical evidence of adrenal insufficiency. Elevated Uosm is suggestive of high ADH production possibly related to pain/hospitalization or SIADH * Serum sodium is mildly improved from 124 to 126 last 24 hours * Continue NaCl 1 g po BID * Will give additional 1g NaCl this am * Will provide one dose Bumex 0.5 mg po x1 to promote free water excretion * Follow up PRP, Uosm ordered for am (2) HTN (hypertension): * BP remains reasonably well controlled * Continue Atenolol and Telmisartan (3) Hypothyroidism: * On levothyroxine therapy * 12/13 TSH - wnl (4) Osteoporosis: (5) Status post left hip replacement: (6) SNHL (sensorineural hearing loss): Admission and Anticipated Discharge Date Admission Date: January 16, 2021 Subjective Ms. Linda was seen & examined in her hospital room this morning. She is extremely hard of hearing but voices no medical concerns. She reports that she is tolerating NaCl tablets without GI upset. Review of Systems Constitutional: + weakness; no fever Eyes: no problem reported Respiratory: no dyspnea Cardiovascular: no chest pain Gastrointestinal: no abdominal pain and no nausea Neurologic: + falls; no confusion Physical Exam Constitutional: + frail appearing; not in distress Eyes: PERRL, conjunctivae normal, anicteric sclerae ENMT: external ear and nose normal, oropharynx normal Neck: trachea midline, no thyromegaly Respiratory: normal respiratory effort, lungs clear to auscultation Cardiovascular: RRR, no murmur, no edema Gastrointestinal (Abdomen): normal bowel sounds, soft, nontender, no hepatosplenomegaly Musculoskeletal: Extremities: no cyanosis Skin: no rashes, warm and dry Neurologic: awake; not confused Results & Data ([facility]) Vital Signs (Past 12 Hours) Vital Signs Temp Pulse Resp BP Pulse Ox 01/20/21 07:55 36.7 C 70 16 147/83 H 99 01/19/21 22:17 36.7 C 65 16 154/77 H 93 Laboratory Tests 01/20/21 05:26 Sodium 128 L Potassium 3.5 Chloride 96 L Carbon Dioxide 28 BUN 9 Creatinine 0.30 L Glucose 86 Calcium 8.1 L Laboratory Tests 01/19/21 09:50 Urine Osmolality 658 PG Care Time/CCT Total # of Minutes Spent Total Time Spent with Patient: Total time spent is greater than 50% in coordination of care (as documented) at patient's floor/unit and/or counseling patient: Coding Level of Care Code 62557 Subseq Hosp Care Lvl 3 Diagnoses SIADH (syndrome of inappropriate ADH production) E22.2 HTN (hypertension) I10 Hypertension type: essential hypertension Hypothyroidism E03.9 Hypothyroidism type: acquired Osteoporosis M80.00XA Osteoporosis type: age-related Presence of current pathological fracture: with current pathological fracture Encounter type: initial encounter Status post left hip replacement Z96.642 SNHL (sensorineural hearing loss) H90.5 (1) HTN (hypertension) Hypertension type: essential hypertension Qualified Code(s): I10 - Essential (primary) hypertension (2) Hypothyroidism Hypothyroidism type: acquired Qualified Code(s): E03.9 - Hypothyroidism, unspecified (3) Osteoporosis Osteoporosis type: age-related Presence of current pathological fracture: with current pathological fracture Encounter type: initial encounter Qualified Code(s): M80.00XA - Age-related osteoporosis with current pathological fracture, unspecified site, initial encounter for fracture
[2021-01-20 13:14] LABS: BUN Creatinine Ratio 23.5 (10-20); Calcium 8.1 mg/dl (8.5-10.1); Creatinine Clr Calc Pharmacy 81.1 ml/min; Est GFR (Non-African American) 92.3 ml/min; Potassium 3.7 mmol/L (3.5-5.1)
[2021-01-20] MEDS: DOCUSATE SODIUM/SENNA 50/8.6MG TAB PO SCH (20:13)
--- NOTE | 2021-01-20 21:51 | Hospitalist Progress Note ---
Date of Service January 20, 2021 Assessment & Plan (1) SIADH (syndrome of inappropriate ADH production): Chronic hyponatremia at baseline with Na ~130-131. - Na fell to 126 on 01/19. I think this likely is due to IV fluids gives during surgery with now very concentrated urine. - Discussed with nephrology on 01/20 will continue Bumex and salt tablets. (2) Closed left hip fracture: S/p Left Cemented Anterior Bipolar Hip with Dr. Cunningham on 01/17 - Doing well post-operatively. - Post-op care per surgical team - PT/OT -> So far recommending rehab. - ASA 81 mg PO BID per surgical team -> Doing great. No issues with pain control. Working with PT/OT. Plan for [facility] Wednesday v. Wednesday. (3) HTN (hypertension): BP today is 130/70, but was higher overnight (~160/80s). - Continue atenolol & telmisartan (4) Cardiomegaly: Reported in admission note, but I don't see it in other recent PCP notes. - Consider follow up TTE as outpatient. No acute indication of needs. (5) Hypothyroidism: TSH was 1.05 in November 2020. - Continue levothyroxine 125 mcg p.o. daily (6) Osteoporosis: Severe per prior bone density in 2019. - Already taking alendronate, hold deloris-operatively. (7) Recurrent falls: No specific etiology other than tripping. - PT/OT evals recommend rehab. (8) DVT prophylaxis: ASA 81 mg PO BID Admission and Anticipated Discharge Date Admission Date: January 16, 2021 Subjective Patient is a poor historian. She has no new complaints. Review of Systems Review of Systems: All systems reviewed & are unremarkable except as noted in HPI & below Physical Exam Physical Exam: Constitutional: WD/WN, vitals as above Eyes: EOM intact bilaterally; no conjunctival abnormality ENMT: external ear and nose normal, oropharynx normal Neck: trachea midline, no thyromegaly normal visual inspection Respiratory: normal respiratory effort, lungs clear to auscultation no respiratory distress Cardiovascular: RRR, no murmur, no edema Gastrointestinal (Abdomen): Inspection/Auscultation: abdomen normal to inspection; abdomen not distended Musculoskeletal: no cyanosis or clubbing, extremities motor strength 5/5 Skin: no rashes, warm and dry Neurologic: moves all extremities and awake Psychiatric: Orientation: alert, oriented to person and cooperative Results & Data Results & Data ([facility]) Vital Signs (Past 12 Hours) Vital Signs Temp Pulse Resp BP Pulse Ox 01/20/21 16:35 36.8 C 68 16 158/84 H 98 PG Care Time/CCT Total # of Minutes Spent Total Time Spent with Patient: Total time spent is greater than 50% in coordination of care (as documented) at patient's floor/unit and/or counseling patient: Coding Level of Care Code 97045 Subseq Hosp Care Lvl 2 Diagnoses SIADH (syndrome of inappropriate ADH production) E22.2 Closed left hip fracture S72.002A Encounter type: initial encounter HTN (hypertension) I10 Hypertension type: essential hypertension Cardiomegaly I51.7 Hypothyroidism E03.9 Hypothyroidism type: acquired Osteoporosis M80.00XA Encounter type: initial encounter Osteoporosis type: age-related Presence of current pathological fracture: with current pathological fracture Recurrent falls R29.6 DVT prophylaxis Z29.9 Time Spent (min) 25 (1) Osteoporosis Encounter type: initial encounter Osteoporosis type: age-related Presence of current pathological fracture: with current pathological fracture Qualified Code(s): M80.00XA - Age-related osteoporosis with current pathological fracture, unspecified site, initial encounter for fracture (2) Hypothyroidism Hypothyroidism type: acquired Qualified Code(s): E03.9 - Hypothyroidism, unspecified (3) HTN (hypertension) Hypertension type: essential hypertension Qualified Code(s): I10 - Essential (primary) hypertension (4) Closed left hip fracture Encounter type: initial encounter Qualified Code(s): S72.002A - Fracture of unspecified part of neck of left femur, initial encounter for closed fracture
[2021-01-21] MEDS: LEVOTHYROXINE SODIUM 125 MCG TABLET PO SCH (05:58)
[2021-01-21 07:11] LABS: Calcium 8.1 mg/dl (8.5-10.1); Creatinine Clr Calc Pharmacy 111.9 ml/min; Est GFR (Non-African American) 102.7 ml/min; Potassium 3.4 mmol/L (3.5-5.1)
[2021-01-21] MEDS: ASPIRIN 81 MG ECTAB PO SCH (08:26)
[2021-01-21] MEDS: MULTIVITAMIN TAB PO SCH (08:26)
[2021-01-21] MEDS: TELMISARTAN 40 MG TAB PO SCH (08:27)
[2021-01-21] MEDS: ATENOLOL 50 MG TABLET PO SCH (08:27)
[2021-01-21] MEDS: SODIUM CHLORIDE 1 GM TABLET PO SCH (08:27)
--- NOTE | 2021-01-21 08:56 | Nephrology Progress Note ---
Date of Service January 21, 2021 Assessment & Plan (1) SIADH (syndrome of inappropriate ADH production): * Clinically euvolemic with normal thyroid and kidney function. No clinical evidence of adrenal insufficiency. Elevated Uosm is suggestive of high ADH production possibly related to pain/hospitalization or SIADH * Serum sodium is approaching patient's baseline of 130 mmol/L * Continue NaCl 1 g po BID * Continue Bumex 0.5 mg po daily to promote free water excretion * Follow up PRP, Uosm ordered for am * If discharge is anticipated, please have patient follow up w/ Dr. Parra in ~ 2 weeks ([phone]) (2) HTN (hypertension): * BP remains reasonably well controlled * Continue Atenolol and Telmisartan (3) Hypothyroidism: * On levothyroxine therapy * 12/13 TSH - wnl (4) Osteoporosis: (5) Status post left hip replacement: (6) SNHL (sensorineural hearing loss): Admission and Anticipated Discharge Date Admission Date: January 16, 2021 Subjective Ms. Linda was seen & examined in her hospital room this morning. She is extremely hard of hearing but voices no medical concerns. She reports that she is tolerating NaCl tablets without GI upset. Review of Systems Constitutional: + weakness; no fever Eyes: no problem reported Respiratory: no dyspnea Cardiovascular: no chest pain Gastrointestinal: no abdominal pain and no nausea Neurologic: + falls; no confusion Physical Exam Constitutional: + frail appearing; not in distress Eyes: PERRL, conjunctivae normal, anicteric sclerae ENMT: external ear and nose normal, oropharynx normal Neck: trachea midline, no thyromegaly Respiratory: normal respiratory effort, lungs clear to auscultation Cardiovascular: RRR, no murmur, no edema Gastrointestinal (Abdomen): normal bowel sounds, soft, nontender, no hepatosplenomegaly Musculoskeletal: Extremities: no cyanosis Skin: no rashes, warm and dry Neurologic: awake; not confused Results & Data ([facility]) Vital Signs (Past 12 Hours) Vital Signs Temp Pulse Resp BP Pulse Ox 01/21/21 07:35 36.4 C L 67 16 146/70 H 98 01/21/21 04:34 36.6 C 71 18 142/83 H 97 Laboratory Tests 01/21/21 01/21/21 01:29 06:05 Sodium 129 L Potassium 3.4 L Chloride 95 L Carbon Dioxide 30 BUN 11 Creatinine 0.29 L Glucose 82 Urine Osmolality 572 PG Care Time/CCT Total # of Minutes Spent Total Time Spent with Patient: Total time spent is greater than 50% in coordination of care (as documented) at patient's floor/unit and/or counseling patient: Coding Level of Care Code 68084 Subseq Hosp Care Lvl 3 Diagnoses SIADH (syndrome of inappropriate ADH production) E22.2 HTN (hypertension) I10 Hypertension type: essential hypertension Hypothyroidism E03.9 Hypothyroidism type: acquired Osteoporosis M80.00XA Osteoporosis type: age-related Presence of current pathological fracture: with current pathological fracture Encounter type: initial encounter Status post left hip replacement Z96.642 SNHL (sensorineural hearing loss) H90.5 (1) HTN (hypertension) Hypertension type: essential hypertension Qualified Code(s): I10 - Essential (primary) hypertension (2) Hypothyroidism Hypothyroidism type: acquired Qualified Code(s): E03.9 - Hypothyroidism, unspecified (3) Osteoporosis Osteoporosis type: age-related Presence of current pathological fracture: with current pathological fracture Encounter type: initial encounter Qualified Code(s): M80.00XA - Age-related osteoporosis with current pathological fracture, unspecified site, initial encounter for fracture
[2021-01-21] MEDS ORDERED: BUMETANIDE 1 MG TAB PO SCH (09:00)
[2021-01-21] MEDS ORDERED: POTASSIUM CHLORIDE CRTAB 20 MEQ TABCR PO STA (10:49)
--- NOTE | 2021-01-23 06:28 | Discharge Summary ---
Date of Service January 21, 2021 Admission HPI Per Admitting Provider Geneva Linda is an 89 year old female admission for left hip pain after a fall 3 days previously. Pain severity 6/10 on any movement. Multiple falls recently. 3 weeks ago fell in yard with abrasion to left lower extremity. 2 weeks ago fell at home with ecchymosis to the lateral distal knee and thigh. Fell out in the yard developing some abrasion of her left lower extremity. She was doing ok after these falls and able to go to [employer] at the weekend. However on Wednesday she was having problems with ambulation and more reliant on her walker and trouble moving her leg. She followed up with her PCP today and subsequent hip XR confirmed hip fracture and she was referred to the ER for further treatment. She reports mild right groin and knee pain at this time. She denies any chest pain, dizziness or shortness of breath prior to her falls. She feels like she just trips on uneven ground and denies any inherent balance problems. No shortness of breath or chest pain on exertion. No prior MT of CVA. The patient has known osteoporosis and started alendronate 11/2016. Vitamin D3 01/2020 WNL. Principal Diagnosis closed left hip fracture Discharge Exam Constitutional: WD/WN, vitals as above Eyes: EOM intact bilaterally; no conjunctival abnormality ENMT: external ear and nose normal, oropharynx normal Neck: trachea midline, no thyromegaly normal visual inspection Respiratory: normal respiratory effort, lungs clear to auscultation no respiratory distress Cardiovascular: RRR, no murmur, no edema Gastrointestinal (Abdomen): Inspection/Auscultation: abdomen normal to inspection; abdomen not distended Musculoskeletal: no cyanosis or clubbing, extremities motor strength 5/5 Skin: no rashes, warm and dry Neurologic: moves all extremities and awake Psychiatric: Orientation: alert, oriented to person and cooperative Discharge Data Allergies Allergy/AdvReac Type Severity Reaction Status Date / Time No Known Allergies Allergy Verified 01/16/21 14:44 Consultations 01/16/21 12:55 ED Decision to Admit Stat 01/16/21 20:00 Consult Orthopedic Surgery Routine 01/19/21 07:04 Consult Nephrology Routine Procedures Performed Operation Date: 01/16/21 14:15 Actual Procedures p Left Cemented Anterior Bipolar Hip(Left) - Ramon Cunningham DO Ordered Studies 01/16/21 15:00 FL hip LT 1V Routine Hospital Course (1) SIADH (syndrome of inappropriate ADH production): Chronic hyponatremia at baseline with Na ~130-131. - Na fell to 126 on 01/19. I think this likely is due to IV fluids gives during surgery with now very concentrated urine. - Discussed with nephrology on 01/21 Appreciate input: Clinically euvolemic with normal thyroid and kidney function. No clinical evidence of adrenal insufficiency. Elevated Uosm is suggestive of high ADH production possibly related to pain/hospitalization or SIADH Serum sodium is approaching patient's baseline of 130 mmol/L Continue NaCl 1 g po BID Continue Bumex 0.5 mg po daily to promote free water excretion please have patient follow up w/ Dr. Parra in ~ 2 weeks ([phone]) (2) Closed left hip fracture: S/p Left Cemented Anterior Bipolar Hip with Dr. Cunningham on 01/17 - Doing well post-operatively. - Post-op care per surgical team - PT/OT -> So far recommending rehab. - ASA 81 mg PO BID per surgical team -> Doing great. No issues with pain control. (3) HTN (hypertension): BP today is 130/70, but was higher overnight (~160/80s). - Continue atenolol & telmisartan (4) Cardiomegaly: Reported in admission note, but I don't see it in other recent PCP notes. - Consider follow up TTE as outpatient. No acute indication of needs. (5) Hypothyroidism: TSH was 1.05 in November 2020. - Continue levothyroxine 125 mcg p.o. daily (6) Osteoporosis: Severe per prior bone density in 2019. - Already taking alendronate, hold deloris-operatively. (7) Recurrent falls: No specific etiology other than tripping. - PT/OT evals recommend rehab. (8) DVT prophylaxis: ASA 81 mg PO BID Total Time Total Time Spent Total Time Spent (In Minutes): 32 Total Time Includes: Examination of the Patient, Discharge Planning and Med ication Reconciliation Discharge Plan Discharge Items Patient Disposition: Transfer Inpatient Rehab Fac Reason For Visit: LEFT HIP FRACTURE Discharge Diagnosis: Left hip fracture Activity: Resume your previous activity Non-emergency contact: Primary Care Provider Call non-emergency contact if: you have any medication questions Follow-up/Referrals: Bao Eisenberg MD [Primary Care Provider] - Diet: Regular Addtl Attending Provider Instructions: Continue NaCl 1 g po BID Continue Bumex 0.5 mg po daily to promote free water excretion Please check BMP in 1 week. Please have patient follow up w/ Dr. Parra in ~ 2 weeks ([phone]) Followup with PCP in 2 weeks Addtl Blueprint Duplicator Provider Instructions: ORTHOPEDIC INSTRUCTIONS Hip Hemiarthroplasty Activity and Therapy Recommendations: 1. You were shown a series of exercises in the hospital. Do these exercises three times each day if you are able. 2. Get up and walk several times each day if you are capable. Make sure you have assistance is needed. For the first four weeks, try not to stand or walk for more than one hour at a time. If you do stand or walk for more than one hour, you will not hurt anything, but your leg will likely swell. 3. As you feel comfortable, you may change from the walker or crutches to a cane and then to independent walking if you are able. Please be safe. Medications: 1. Narcotic You will likely be sent from the hospital with the narcotic pain medication that worked best throughout your stay. 2. Aspirin You will be required to take Aspirin 81mg twice a day for 6 weeks after surgery to prevent blood clots. 3. Other medications may be given for specific circumstances. If you have any questions, please call the office at [phone]. 4. Resume previous home medications unless otherwise instructed TEDs/Elastic Stockings: The white elastic stockings help limit swelling and prevent blood clots from forming in your legs. The more you wear them, the more they work. Wear them for six weeks. Dressing Care: Leave the Silverlon dressing in place for 7 days. After 7 days you may remove the dressing. If the incision is not draining then you may leave the enoch open to air. If there is a little bit of drainage or if the enoch are getting stuck on your clothing then cover the incision with a dry dressing. The enoch will be removed at your 2 week follow-up appointment. Showering: You may shower with the Silverlon dressing in place. Do not let the shower spray hit the dressing directly. Pat the Silverlon dressing dry. If the dressing becomes wet underneath, then simply remove the dressing. Keep the incision dry until you are 7 days out from the day of surgery. After 7 days you may remove the Silverlon dressing and shower with the enoch exposed. Let soapy water run over the enoch and pat them dry. Do not scrub or soak the incision. Things To Watch For: 1. Drainage from the incision site that occurs more than one week after your surgery. 2. Increased redness at the incision site. 3. Fever above 102 degrees Fahrenheit. 4. Unusual chest pain or shortness of breath. 5. Call [facility] at with any of the above problems Follow-Up Visit: Follow-up with Dr. Cunningham's PA (Ramon Diop) 2-3 weeks after your day of surgery. He will remove your enoch and answer any questions. If you have any additional questions or concerns, Dr Cunningham is usually in the office at the same time and will be available If you have any questions call Pending Studies at Discharge: No Stand-Alone Forms: My [facility] Skilled Items Patient informed of condition?: No DNR: No Discharge Level of Care: Acute rehab Communicable Disease: No Discharge Prognosis: Stable Lines: None Urinary Catheter: No Medications and DC Order Prescriptions: New aspirin 81 mg Tablet,Delayed Release (Dr/Ec) 81 mg PO BID Qty: 60 RF: 0 acetaminophen 325 mg Tablet 650 mg PO Q4H PRN (Reason: pain (scale score 1-3)) Qty: 30 RF: 0 bumetanide 1 mg Tablet 0.5 mg PO QAM Qty: 30 RF: 0 sodium chloride 1 gram Tablet 1 g PO BID Qty: 60 RF: 0 sennosides-docusate sodium [Senokot-S] 8.6-50 mg Tablet 2 tab PO HS Qty: 30 RF: 0 bisacodyl 10 mg Suppository 10 mg MD DAILY PRN (Reason: constipation) Qty: 50 RF: 0 potassium chloride 10 mEq tablet extended release 10 meq PO DAILY Qty: 30 RF: 0 Continued telmisartan 80 mg tablet 80 mg PO QAM Qty: 90 RF: 3 cholecalciferol (vitamin D3) 25 mcg (1,000 unit) tablet 25 mcg PO BID RF: 0 Ca-D3-mag ge-wjmm-mdf-marine-bor [Calcium 600-D3 Plus (mag-zinc)] 600 mg calcium- 800 unit-50 mg tablet 1 tab PO QAM RF: 0 multivitamin tablet 1 tab PO QAM RF: 0 atenolol 50 mg tablet 50 mg PO QAM Qty: 90 RF: 3 levothyroxine 125 mcg capsule 125 mcg PO QAM RF: 0 Discontinued aspirin 81 mg tablet,delayed release (DR/EC) 81 mg PO QAM RF: 0 Discharge Orders: Discharge Order (Routine); Ordered 01/21/21 Ordered By: Jean Carlos Jaramillo Admission Data Admit Date/Time: 01/16/21 18:57 Attending Provider: Jean Carlos Jaramillo Admit Provider: Nitish France Primary Care Provider: Bao Eisenberg Other Providers: Ramon Cunningham ; Elbert Mcgill ; [facility] ; Jean Duque Other Interventions: Discharge Summary Assessment (RN) Last Done: 01/21/21 11:36 Coding Level of Care Code D/C Day Management >30 mins Diagnoses SIADH (syndrome of inappropriate ADH production) E22.2 Closed left hip fracture S72.002A Encounter type: initial encounter HTN (hypertension) I10 Hypertension type: essential hypertension Cardiomegaly I51.7 Hypothyroidism E03.9 Hypothyroidism type: acquired Osteoporosis M80.00XA Osteoporosis type: age-related Presence of current pathological fracture: with current pathological fracture Encounter type: initial encounter Recurrent falls R29.6 DVT prophylaxis Z29.9 Time Spent (min) 32
--- NOTE | 2021-02-02 15:30 | Coding Query ---
To promote full compliance with coding requirements relating to patient care, physician participation is requested in all cases of assembler skylights uncertainty. Please assist us with the question(s) below: Coding Question(s): It was noted throughout the record that the patient has/is suspected to have osteoporosis. According to coding guidelines "a code for osteoporotic fracture, and not a traumatic fracture, should be used for any patient with known osteoporosis who suffers a fracture, even if the patient had a minor fall or trauma, if that fall or trauma would not usually break a normal, healthy bone." Please indicate below the type of fracture: Physician's Response(s): ( ) Osteoporotic fracture of the left femur ( ) Traumatic fracture of the left femur ( ) Other, please specify ( ) Unable to be determined Thank you for your time, MIKALA Nguyen, [facility]
--- NOTE | 2021-02-13 07:30 | Coding Query ---
CODING QUERY To promote full compliance with coding requirements relating to patient care, physician participation is requested in all cases of joy operator uncertainty. Please assist us with the question(s) below: Coding Question(s): It was noted throughout the record that the patient has/is suspected to have osteoporosis. According to coding guidelines "a code for osteoporotic fracture, and not a traumatic fracture, should be used for any patient with known osteoporosis who suffers a fracture, even if the patient had a minor fall or trauma, if that fall or trauma would not usually break a normal, healthy bone." Please indicate below the type of fracture: Physician's Response(s): (x) Osteoporotic fracture of the left femur ( ) Traumatic fracture of the left femur ( ) Other, please specify ( ) Unable to be determined Thank you for your time, MIKALA Nguyen, [facility]
== END 2021-01-21 13:04 | DRG 522 ==
LOC: ED 11:52 → 3E 18:57 → SUATTDRO 18:57